=== PATIENT | female | born 1970 | race Caucasian/White ===

== ENCOUNTER 2022-11-21 15:09 | Emergency (ER) | payer OTHER ==
--- OUTSIDE RECORDS SUMMARY | 2022-11-21 15:17 | XMS REPORT | Continuity of Care Document ---
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 5-06 tablet by ity of ODT) 4 mg 00:00: mouth [place] disintegrat 00 every 8 Medic al ing tablet (eight) Branch hours as needed for Nausea and Vomiting (N/V) for up to 15 doses. famotidine 2021-0 Yes [id number] 20mg Take 1 [facility] (PEPCID) 20 5-06 tablet by ity of mg tablet 00:00: mouth 2 (two) Medical times Branch daily. dicyclomine 2021-0 Yes [id number] 10mg Take 1 [facility] 10 mg 5-06 capsule by ity of capsule 00:00: mouth 4 [place] (four) Medical times Branch daily as needed for Abdominal pain. ondansetron 2021-0 Yes [id number] 4mg Take 1 [facility] (ZOFRAN 5-06 tablet by ity of ODT) 4 mg 00:00: mouth [place] disintegrat 00 every 8 Medic al ing tablet (eight) Branch hours as needed for Nausea and Vomiting (N/V) for up to 15 doses. famotidine 2021-0 Yes [id number] 20mg Take 1 [facility] (PEPCID) 20 5-06 tablet by ity of mg tablet 00:00: mouth 2 (two) Medical times Branch daily. dicyclomine 2021-0 Yes [id number] 10mg Take 1 [facility] 10 mg 5-06 capsule by ity of capsule 00:00: mouth 4 (four) Medical times Branch daily as needed for Abdominal pain. ondansetron 2021-0 Yes [id number] 4mg Take 1 [facility] (ZOFRAN 5-06 tablet by ity of ODT) 4 mg 00:00: mouth [place] disintegrat 00 every 8 Medic al ing tablet (eight) Branch hours as needed for Nausea and Vomiting (N/V) for up to 15 doses. famotidine 2021-0 Yes [id number] 20mg Take 1 [facility] (PEPCID) 20 5-06 tablet by ity of mg tablet 00:00: mouth 2 (two) Medical times Branch daily. dicyclomine 2021-0 Yes [id number] 10mg Take 1 [facility] 10 mg 5-06 capsule by ity of capsule 00:00: mouth 4 [place] (four) Medical times Branch daily as needed for Abdominal pain. ondansetron 2021-0 Yes [id number] 4mg Take 1 [facility] (ZOFRAN 5-06 tablet by ity of ODT) 4 mg 00:00: mouth [place] disintegrat 00 every 8 Medic al ing tablet (eight) Branch hours as needed for Nausea and Vomiting (N/V) for up to 15 doses. famotidine 2021-0 Yes [id number] 20mg Take 1 [facility] (PEPCID) 20 5-06 tablet by ity of mg tablet 00:00: mouth 2 [place] (two) Medical times Branch daily. dicyclomine 2020-0 Yes [id number] 10mg Take 1 [facility] 10 mg 5-06 capsule by ity of capsule 00:00: mouth 4 [place] 00 (four) Medical times [place] daily as needed for Abdominal pain. ondansetron 2020-0 Yes [id number] 4mg Take 1 [facility] (ZOFRAN 5-06 tablet by ity of ODT) 4 mg 00:00: mouth [place] disintegrat 00 every 8 Medic al ing tablet (eight) Branch hours as needed for Nausea and Vomiting (N/V) for up to 15 doses. famotidine 0 Yes [id number] 20mg Take 1 [facility] (PEPCID) 20 5-06 tablet by ity of mg tablet 00:00: mouth 2 [place] (two) Medical times [place] daily. hydroCHLORO 2020-0 Yes 25mg Take 25 mg [facility] thiazide 25 4-27 by mouth ity of mg tablet 00:00: daily. [address] hydroCHLORO 0 Yes 25mg Take 25 mg [facility] thiazide 25 4-27 by mouth ity of mg tablet 00:00: daily. [address] hydroCHLORO 2020-0 Yes 25mg Take 25 mg [facility] thiazide 25 4-27 by mouth ity of mg tablet 00:00: daily. [address] hydroCHLORO 2020-0 Yes 25mg Take 25 mg [facility] thiazide 25 4-27 by mouth ity of mg tablet 00:00: daily. [address] hydroCHLORO 2020-0 Yes 25mg Take 25 mg [facility] thiazide 25 4-27 by mouth ity of mg tablet 00:00: daily. [address] hydroCHLORO 2020-0 Yes 25mg Take 25 mg [facility] thiazide 25 4-27 by mouth ity of mg tablet 00:00: daily. [address] nicotine 2020- Yes 1{patch 1 Patch, Un rony (NICODERM) 2-17 } Topical, ity o f 21 mg/24 hr 06:00: Administer [place] patch 1 00 over 24 Medical Patch Hours, Branch Q24H, First dose on [facility] 05/11/20 at 0000, Until Discontinu ed, Routine cefTRIAXone 2020-1 2020- No 1000mg 1,000 mg, [facility] (ROCEPHIN) 0-14 10-14 IV ity of 1,000 mg in 20:30: 20:07 [place], [place] NaCl 0.9% 00 :00 ONCE, 1 Medical (NS) 50 mL dose, Wed Bran ch MINI-BAG 03/08/20 at 1530, 50 mL
Reas on for Anti-Infec tive: Documented Infection< br>Documen jd Infection Site: Urine
D uration of Therapy: Other (see Comments) cefpodoxime 2020-1 2020- No [id number] 100mg Take 1 [facility] 100 mg 0-14 10-25 tablet by ity of tablet 00:00: 04:59 mouth 2 [place] 00 :00 (two) Medical times Branch daily for 10 days. benazepriL 2020-0 Yes 20mg QD Take 20 mg M [facility] (LOTENSIN) 3-[address] 20 MG 13:19: daily. [facility] tablet 57 l DULoxetine 2020-0 Yes 60mg QD Take 60 mg [facility] (CYMBALTA) 3-[address] 60 MG 13:19: daily. [facility]osp[facility] capsule 57 l hydroCHLORO 2020-0 Yes 25mg QD Take 25 mg [facility] thiazide 3-[address] (HYDRODIURI 13:19: daily. [facility]osp meri L) 25 MG 57 l tablet hydrOXYzine 2020-0 Yes 25mg QD Take 25 mg [facility] (ATARAX) 25 3-[address] [facility] tablet 13:19: daily. Hospit a 57 l DULoxetine 2020-0 Yes 60mg QD Take 60 mg M [facility] (CYMBALTA) 3-[address] 60 MG 13:19: daily. [facility]osp[facility] capsule 57 l hydroCHLORO 2020-0 Yes 25mg QD Take 25 mg [facility] thiazide 3-[address] (HYDRODIURI 13:19: daily. [facility]osp [facility] L) 25 MG 57 l tablet hydrOXYzine 2020-0 Yes 25mg QD Take 25 mg [facility] (ATARAX) 25 3-[address] MG tablet 13:19: daily. Hospit [facility] 57 l benazepriL 2020-0 Yes 20mg QD Take 20 mg M [facility] (LOTENSIN) 3-[address] 20 MG 13:19: daily. [facility]osp[facility] tablet 57 l DULoxetine 2020-0 Yes 60mg QD Take 60 mg M [facility] (CYMBALTA) 3-[address] 60 MG 13:19: daily. [facility]osp[facility] capsule 57 l hydroCHLORO 2020-0 Yes 25mg QD Take 25 mg [facility] thiazide 3-[address] (HYDRODIURI 13:19: daily. [facility]osp [facility] L) 25 MG 57 l tablet hydrOXYzine 2020-0 Yes 25mg QD Take 25 mg [facility] (ATARAX) 25 3-[address] MG tablet 13:19: daily. Hospit a 57 l benazepriL 2020-0 Yes 20mg QD Take 20 mg M [facility]i (LOTENSIN) 3-[address] 20 MG 13:19: daily. [facility]ospita tablet 57 l DULoxetine 2020-0 Yes 60mg QD Take 60 mg M [facility] (CYMBALTA) 3-[address] 60 MG 13:19: daily. [facility]osp[facility] capsule 57 l hydroCHLORO 2020-0 Yes 25mg QD Take 25 mg [facility] thiazide 3-[address] (HYDRODIURI 13:19: daily. Hosp meri L) 25 MG 57 l tablet hydroCHLORO 2020-0 Yes 25mg QD Take 25 mg [facility] thiazide 3-[address] (HYDRODIURI 13:19: daily. [facility]osp [facility] L) 25 MG 57 l tablet hydrOXYzine 2020-0 Yes 25mg QD Take 25 mg [facility] (ATARAX) 25 3-[address] MG tablet 13:19: daily. Hospit [facility] 57 l benazepriL 2020-0 Yes 20mg QD Take 20 mg M [facility]i (LOTENSIN) 3-[address] 20 MG 13:19: daily. Hospita tablet 57 l DULoxetine 2020-0 Yes 60mg QD Take 60 mg M [facility] (CYMBALTA) 3-[address] 60 MG 13:19: daily. [facility]ospita capsule 57 l hydrOXYzine 2020-0 Yes 25mg QD Take 25 mg [facility] (ATARAX) 25 3-[address] MG tablet 13:19: daily. Hospit a 57 l benazepriL 2020-0 Yes 20mg QD Take 20 mg M ethodi (LOTENSIN) 3-[address] 20 MG 13:19: daily. Hospita tablet 57 l LORazepam 2020-0 2020- No 1mg 1 mg, Slow U nivers (ATIVAN) 3-05 03-05 IV Push, ity of injection 1 06:00: 04:59 ONCE, 1 [place] mg 00 :00 dose, [facility] 07/29/19 at Branch 0000, STAT maalox:diph 2018- No 15mL 15 mL, Uni vers enhydrAMINE 01-31 Oral, ity of :lidocaine2 22:00: 20:58 ONCE, 1 [place] %viscous 00 :00 dose, [facility] 1:1:1: 01/31/19 at [place] suspension 1700, (COMPOUNDED Routine ) famotidine 2018- No 20mg 20 mg, Univ ers (PEPCID 01-31 Slow IV ity of (PF)) 21:45: 20:54 Push, [place] injection 00 :00 ONCE, 1 Medical 20 mg dose, [facility] 01/31/19 at 1645, [place] NaCl 0.9% 2019- No 1000mL at 999 Uni vers (NS) bolus 01-31 mL/hr, ity of infusion 20:45: 22:00 1,000 mL, [place] as 1,000 mL 00 :00 IV Medical Infusion, [place] ONCE, 1 dose, [facility] 01/31/19 at 1545, [place] famotidine 2018-0 Yes [id number] 20mg Take 1 U nivers (PEPCID) 20 9-08 tablet by ity of mg tablet 00:00: mouth 2 [place] [address] (two) Medical times [place] daily. pantoprazol 2019-0 Yes [id number] 40mg Take 1 [facility] e 9-08 tablet by ity of (PROTONIX) 00:00: mouth [place] 40 mg EC 00 daily. Medical tablet Branch famotidine 2019-0 Yes [id number] 20mg Take 1 U n[facility] (PEPCID) 20 9-08 tablet by ity of mg tablet 00:00: mouth 2 [place] 00 (two) Medical times [place] daily. pantoprazol 2019-0 Yes [id number] 40mg Take 1 [facility] e 9-08 tablet by ity of (PROTONIX) 00:00: mouth [place] 40 mg EC 00 daily. Medical tablet Branch famotidine 2019-0 Yes [id number] 20mg Take 1 U n[facility] (PEPCID) 20 9-08 tablet by ity of mg tablet 00:00: mouth 2 [place] 00 (two) Medical times [place] daily. pantoprazol 2019-0 Yes [id number] 40mg Take 1 [facility] e 9-08 tablet by ity of (PROTONIX) 00:00: mouth [place] 40 mg EC 00 daily. Medical tablet Branch famotidine 2018-0 Yes [id number] 20mg Take 1 U n[facility] (PEPCID) 20 9-08 tablet by ity of mg tablet 00:00: mouth 2 [place] (two) Medical times Branch daily. pantoprazol 2019-0 Yes [id number] 40mg Take 1 [facility] e 9-08 tablet by ity of (PROTONIX) 00:00: mouth [place] 40 mg EC 00 daily. Medical tablet Branch famotidine 0 Yes [id number] 20mg Take 1 U n[facility] (PEPCID) 20 9-08 tablet by ity of mg tablet 00:00: mouth 2 (two) Medical times Branch daily. pantoprazol 2018-0 Yes [id number] 40mg Take 1 [facility] e 9-08 tablet by ity of (PROTONIX) 00:00: mouth [place] 40 mg EC 00 daily. Medical tablet Branch famotidine Yes [id number] 20mg Take 1 [facility] n[facility] (PEPCID) 20 9-08 tablet by ity of mg tablet 00:00: mouth 2 (two) Medical times Branch daily. pantoprazol 2018-0 Yes [id number] 40mg Take 1 [facility] e 9-08 tablet by ity of (PROTONIX) 00:00: mouth [place] 40 mg EC 00 daily. Medical tablet Branch famotidine 0 Yes [id number] 20mg Take 1 U n[facility] (PEPCID) 20 9-08 tablet by ity of mg tablet 00:00: mouth 2 (two) Medical times Branch daily. pantoprazol 2019-0 Yes [id number] 40mg Take 1 [facility] e 9-08 tablet by ity of (PROTONIX) 00:00: mouth [place] 40 mg EC 00 daily. Medical tablet Branch famotidine 2018-0 Yes [id number] 20mg Take 1 U nivers (PEPCID) 20 9-08 tablet by ity of mg tablet 00:00: mouth 2 [place] (two) Medical times Branch daily. pantoprazol 2019-0 Yes [id number] 40mg Take 1 [facility] e 9-08 tablet by ity of (PROTONIX) 00:00: mouth [place] 40 mg EC 00 daily. Medical tablet Branch famotidine 2018-0 Yes [id number] 20mg Take 1 U nivers (PEPCID) 20 9-08 tablet by ity of mg tablet 00:00: mouth 2 (two) Medical times Branch daily. pantoprazol 2019-0 Yes [id number] 40mg Take 1 [facility] e 9-08 tablet by ity of (PROTONIX) 00:00: mouth [place] 40 mg EC 00 daily. Medical tablet Branch famotidine 2018- Yes [id number] 20mg Take 1 U nivers (PEPCID) 20 9-08 tablet by ity of mg tablet 00:00: mouth 2 (two) Medical times Branch daily. pantoprazol 2019- Yes [id number] 40mg Take 1 [facility] e 9-08 tablet by ity of (PROTONIX) 00:00: mouth [place] 40 mg EC 00 daily. Medical tablet Branch famotidine Yes [id number] 20mg Take 1 U nivers (PEPCID) 20 9-08 tablet by ity of mg tablet 00:00: mouth (two) Medical times Branch daily. pantoprazol 2018- Yes [id number] 40mg Take 1 [facility] e 9-08 tablet by ity of (PROTONIX) 00:00: mouth [place] 40 mg EC 00 daily. Medical tablet Branch famotidine Yes [id number] 20mg Take 1 U nivers (PEPCID) 20 9-08 tablet by ity of mg tablet 00:00: mouth (two) Medical times Branch daily. pantoprazol 2018-0 Yes [id number] 40mg Take 1 [facility] e 9-08 tablet by ity of (PROTONIX) 00:00: mouth [place] 40 mg EC 00 daily. Medical tablet Branch famotidine Yes [id number] 20mg Take 1 U nivers (PEPCID) 20 9-08 tablet by ity of mg tablet 00:00: mouth 2 (two) Medical times Branch daily. pantoprazol 2019-0 Yes [id number] 40mg Take 1 [facility] e 9-08 tablet by ity of (PROTONIX) 00:00: mouth [place] 40 mg EC 00 daily. Medical tablet Branch famotidine 2018-0 Yes [id number] 20mg Take 1 U nivers (PEPCID) 20 9-08 tablet by ity of mg tablet 00:00: mouth 2 (two) Medical times Branch daily. pantoprazol 2019- Yes [id number] 40mg Take 1 [facility] e 9-08 tablet by ity of (PROTONIX) 00:00: mouth [place] 40 mg EC 00 daily. Medical tablet Branch pantoprazol 2019-0 2019- No [id number] 40mg Take 1 [facility] e 9-08 09-08 tablet by ity of (PROTONIX) 00:00: 00:00 mouth [place] 40 mg EC 00 :00 daily. Medical tablet Branch ibuprofen 2017-0 Yes 800mg Take 1 Un[facility] rs 800 mg 3-24 tablet by ity of tablet 00:00: mouth [place] 00 every 8 Medical (eight) Branch hours. ibuprofen 2017-0 Yes 800mg Take 1 Unive rs 800 mg 3-24 tablet by ity of tablet 00:00: mouth [place] 00 every 8 Medical (eight) Branch hours. ibuprofen 2017-0 Yes 800mg Take 1 Unive rs 800 mg 3-24 tablet by ity of tablet 00:00: mouth [place] 00 every 8 Medical (eight) Branch hours. ibuprofen 2017-0 Yes 800mg Take 1 Unive rs 800 mg 3-24 tablet by ity of tablet 00:00: mouth [place] 00 every 8 Medical (eight) Branch hours. ibuprofen 2017-0 Yes 800mg Take 1 Unive rs 800 mg 3-24 tablet by ity of tablet 00:00: mouth [place] 00 every 8 Medical (eight) Branch hours. ibuprofen 2017-0 Yes 800mg Take 1 Unive rs 800 mg 3-24 tablet by ity of tablet 00:00: mouth [place] 00 every 8 Medical (eight) Branch hours. ibuprofen 2017-0 Yes 800mg Take 1 Unive rs 800 mg 3-24 tablet by ity of tablet 00:00: mouth [place] 00 every 8 Medical (eight) Branch hours. ibuprofen 2017-0 Yes 800mg Take 1 Unive rs 800 mg 3-24 tablet by ity of tablet 00:00: mouth [place] 00 every 8 Medical (eight) Branch hours. ibuprofen 2017-0 Yes 800mg Take 1 Unive rs 800 mg 3-24 tablet by ity of tablet 00:00: mouth [place] 00 every 8 Medical (eight) Branch hours. ibuprofen 2017-0 Yes 800mg Take 1 Unive rs 800 mg 3-24 tablet by ity of tablet 00:00: mouth [place] 00 every 8 Medical (eight) Branch hours. ibuprofen 2017-0 Yes 800mg Take 1 Unive rs 800 mg 3-24 tablet by ity of tablet 00:00: mouth [place] 00 every 8 Medical (eight) Branch hours. ibuprofen 2017-0 Yes 800mg Take 1 Unive rs 800 mg 3-24 tablet by ity of tablet 00:00: mouth [place] 00 every 8 Medical (eight) Branch hours. ibuprofen 2017-0 Yes 800mg Take 1 Unive rs 800 mg 3-24 tablet by ity of tablet 00:00: mouth [place] 00 every 8 Medical (eight) Branch hours. ibuprofen 2017-0 Yes 800mg Take 1 Unive rs 800 mg 3-24 tablet by ity of tablet 00:00: mouth [place] 00 every 8 Medical (eight) Branch hours. albuterol 2017-0 Yes Psychosis, 2{puff} Inhale 2 [facility] (VENTOLIN 1-11 unspecified Puffs by Health HFA,PROVENT 00:00: psychosis mouth [place] 00 type every 6 HFA,PROAIR hours as HFA) 90 needed for mcg/actuati Shortness on inhaler of Breath. loratadine 2017- Yes Psychosis, 10mg Take 1 [facility] (CLARITIN) 1-11 unspecified tablet by Health 10 mg 00:00: psychosis mouth tablet 00 type daily as needed for Allergies. nicotine 2017-0 Yes Psychosis, 2mg Place 1 [facility] polacrilex 1-11 unspecified Each He alth (NICORETTE) 00:00: psychosis inside 2 mg Gum 00 type cheek as needed (nicotine craving). risperiDONE 2017-0 Yes Psychosis, 2mg Q.5D Take 1 [facility] (RISPERDAL) 1-11 unspecified tablet by Health 2 mg tablet 00:00: psychosis mouth 2 00 type times daily. albuterol 2017-0 Yes Psychosis, 2{puff} Inhale 2 [facility] (VENTOLIN 1-11 unspecified Puffs by Health HFA,PROVENT 00:00: psychosis mouth [place] 00 type every 6 HFA,PROAIR hours as HFA) 90 needed for mcg/actuati Shortness on inhaler of Breath. loratadine 2017-0 Yes Psychosis, 10mg Take 1 [facility] (CLARITIN) 1-11 unspecified tablet by Health 10 mg 00:00: psychosis mouth tablet 00 type daily as needed for Allergies. nicotine 2017-0 Yes Psychosis, 2mg Place 1 [facility] polacrilex 1-11 unspecified Each He alth (NICORETTE) 00:00: psychosis inside 2 mg Gum 00 type cheek as needed (nicotine craving). risperiDONE 2017- Yes Psychosis, 2mg Q.5D Take 1 [facility] (RISPERDAL) 1-11 unspecified tablet by Health 2 mg tablet 00:00: psychosis mouth 2 00 type times daily. albuterol 2017- Yes Psychosis, 2{puff} Inhale 2 [facility] (VENTOLIN 1-11 unspecified Puffs by Health HFA,PROVENT 00:00: psychosis mouth [place] 00 type every 6 HFA,PROAIR hours as HFA) 90 needed for mcg/actuati Shortness on inhaler of Breath. loratadine 2017- Yes Psychosis, 10mg Take 1 [facility] (CLARITIN) 1-11 unspecified tablet by Health 10 mg 00:00: psychosis mouth tablet 00 type daily as needed for Allergies. nicotine 2017- Yes Psychosis, 2mg Place 1 [facility] polacrilex 1-11 unspecified Each He alth (NICORETTE) 00:00: psychosis inside 2 mg Gum 00 type cheek as needed (nicotine craving). risperiDONE 2017- Yes Psychosis, 2mg Q.5D Take 1 [facility] (RISPERDAL) 1-11 unspecified tablet by Health 2 mg tablet 00:00: psychosis mouth 2 00 type times daily. albuterol 2017 Yes Psychosis, 2{puff} Inhale 2 [facility] (VENTOLIN 1-11 unspecified Puffs by Health HFA,PROVENT 00:00: psychosis mouth [place] 00 type every 6 HFA,PROAIR hours as HFA) 90 needed for mcg/actuati Shortness on inhaler of Breath. loratadine 2017- Yes Psychosis, 10mg Take 1 [facility] (CLARITIN) 1-11 unspecified tablet by Health 10 mg 00:00: psychosis mouth tablet 00 type daily as needed for Allergies. nicotine 2017- Yes Psychosis, 2mg Place 1 [facility] polacrilex 1-11 unspecified Each He alth (NICORETTE) 00:00: psychosis inside 2 mg Gum 00 type cheek as needed (nicotine craving). risperiDONE 2017-0 Yes Psychosis, 2mg Q.5D Take 1 [facility] (RISPERDAL) 1-11 unspecified tablet by Health 2 mg tablet 00:00: psychosis mouth 2 00 type times daily. albuterol 2017- Yes Psychosis, 2{puff} Inhale 2 [facility] (VENTOLIN 1-11 unspecified Puffs by Health HFA,PROVENT 00:00: psychosis mouth [place] 00 type every 6 HFA,PROAIR hours as HFA) 90 needed for mcg/actuati Shortness on inhaler of Breath. loratadine 2017-0 Yes Psychosis, 10mg Take 1 [facility] (CLARITIN) 1-11 unspecified tablet by Health 10 mg 00:00: psychosis mouth tablet 00 type daily as needed for Allergies. nicotine 2017-0 Yes Psychosis, 2mg Place 1 [facility] polacrilex 1-11 unspecified Each He alth (NICORETTE) 00:00: psychosis inside 2 mg Gum 00 type cheek as needed (nicotine craving). risperiDONE 2017-0 Yes Psychosis, 2mg Q.5D Take 1 [facility] (RISPERDAL) 1-11 unspecified tablet by Health 2 mg tablet 00:00: psychosis mouth 2 00 type times daily. ondansetron 2016-0 Yes 4mg Take 1 Tab [facility] (ZOFRAN, 4-16 by mouth ity of HYDROCHLORI 00:00: every 8 [place],) 4 mg 00 (eight) Medical tablet hours as Branch needed for Nausea and Vomiting (N/V). ketorolac 2016-0 Yes 10mg Take 1 Tab Un rony (TORADOL) 4-16 by mouth ity of 10 mg 00:00: every 6 [place] tablet 00 (six) Medical hours as Branch needed for Pain (scale 7-10). ondansetron 2016-0 Yes 4mg Take 1 Tab [facility] (ZOFRAN, 4-16 by mouth ity of HYDROCHLORI 00:00: every 8 [place],) 4 mg 00 (eight) Medical tablet hours as Branch needed for Nausea and Vomiting (N/V). ketorolac 2016-0 Yes 10mg Take 1 Tab Un rony (TORADOL) 4-16 by mouth ity of 10 mg 00:00: every 6 [place] tablet 00 (six) Medical hours as Branch needed for Pain (scale 7-10). ondansetron 2016-0 Yes 4mg Take 1 Tab [facility] (ZOFRAN, 4-16 by mouth ity of HYDROCHLORI 00:00: every 8 [place],) 4 mg 00 (eight) Medical tablet hours as Branch needed for Nausea and Vomiting (N/V). ketorolac 2016-0 Yes 10mg Take 1 Tab Un rony (TORADOL) 4-16 by mouth ity of 10 mg 00:00: every 6 [place] tablet 00 (six) Medical hours as Branch needed for Pain (scale 7-10). ondansetron 2016-0 Yes 4mg Take 1 Tab [facility] (ZOFRAN, 4-16 by mouth ity of HYDROCHLORI 00:00: every 8 [place],) 4 mg 00 (eight) Medical tablet hours as Branch needed for Nausea and Vomiting (N/V). ketorolac 2016-0 Yes 10mg Take 1 Tab Un rony (TORADOL) 4-16 by mouth ity of 10 mg 00:00: every 6 [place] tablet 00 (six) Medical hours as Branch needed for Pain (scale 7-10). ondansetron 2016-0 Yes 4mg Take 1 Tab [facility] (ZOFRAN, 4-16 by mouth ity of HYDROCHLORI 00:00: every 8 [place],) 4 mg 00 (eight) Medical tablet hours as Branch needed for Nausea and Vomiting (N/V). ketorolac 2016-0 Yes 10mg Take 1 Tab Un rony (TORADOL) 4-16 by mouth ity of 10 mg 00:00: every 6 [place] tablet 00 (six) Medical hours as Branch needed for Pain (scale 7-10). ondansetron 2016-0 Yes 4mg Take 1 Tab [facility] (ZOFRAN, 4-16 by mouth ity of HYDROCHLORI 00:00: every 8 [place],) 4 mg 00 (eight) Medical tablet hours as Branch needed for Nausea and Vomiting (N/V). ketorolac 2016-0 Yes 10mg Take 1 Tab Un rony (TORADOL) 4-16 by mouth ity of 10 mg 00:00: every 6 [place] tablet 00 (six) Medical hours as Branch needed for Pain (scale 7-10). ondansetron 2016-0 Yes 4mg Take 1 Tab [facility] (ZOFRAN, 4-16 by mouth ity of HYDROCHLORI 00:00: every 8 [place],) 4 mg 00 (eight) Medical tablet hours as Branch needed for Nausea and Vomiting (N/V). ketorolac 2016-0 Yes 10mg Take 1 Tab Un rony (TORADOL) 4-16 by mouth ity of 10 mg 00:00: every 6 [place] tablet 00 (six) Medical hours as Branch needed for Pain (scale 7-10). ondansetron 2016-0 Yes 4mg Take 1 Tab [facility] (ZOFRAN, 4-16 by mouth ity of HYDROCHLORI 00:00: every 8 [place],) 4 mg 00 (eight) Medical tablet hours as Branch needed for Nausea and Vomiting (N/V). ketorolac 2016-0 Yes 10mg Take 1 Tab Un rony (TORADOL) 4-16 by mouth ity of 10 mg 00:00: every 6 [place] tablet 00 (six) Medical hours as Branch needed for Pain (scale 7-10). ondansetron 2016-0 Yes 4mg Take 1 Tab [facility] (ZOFRAN, 4-16 by mouth ity of HYDROCHLORI 00:00: every 8 [place],) 4 mg 00 (eight) Medical tablet hours as Branch needed for Nausea and Vomiting (N/V). ketorolac 2016-0 Yes 10mg Take 1 Tab Un rony (TORADOL) 4-16 by mouth ity of 10 mg 00:00: every 6 [place] tablet 00 (six) Medical hours as Branch needed for Pain (scale 7-10). ondansetron 2016-0 Yes 4mg Take 1 Tab [facility] (ZOFRAN, 4-16 by mouth ity of HYDROCHLORI 00:00: every 8 [place],) 4 mg 00 (eight) Medical tablet hours as Branch needed for Nausea and Vomiting (N/V). ketorolac 2016-0 Yes 10mg Take 1 Tab Un rony (TORADOL) 4-16 by mouth ity of 10 mg 00:00: every 6 [place] tablet 00 (six) Medical hours as Branch needed for Pain (scale 7-10). ketorolac 2016-0 Yes 10mg Take 1 Tab Un rony (TORADOL) 4-16 by mouth ity of 10 mg 00:00: every 6 [place] tablet 00 (six) Medical hours as Branch needed for Pain (scale 7-10). ondansetron 2016-0 Yes 4mg Take 1 Tab [facility] (ZOFRAN, 4-16 by mouth ity of HYDROCHLORI 00:00: every 8 [place],) 4 mg 00 (eight) Medical tablet hours as Branch needed for Nausea and Vomiting (N/V). ondansetron 2016-0 Yes 4mg Take 1 Tab [facility] (ZOFRAN, 4-16 by mouth ity of HYDROCHLORI 00:00: every 8 [place],) 4 mg 00 (eight) Medical tablet hours as Branch needed for Nausea and Vomiting (N/V). ketorolac 2016-0 Yes 10mg Take 1 Tab Un rony (TORADOL) 4-16 by mouth ity of 10 mg 00:00: every 6 [place] tablet 00 (six) Medical hours as Branch needed for Pain (scale 7-10). ondansetron 2016-0 Yes 4mg Take 1 Tab [facility] (ZOFRAN, 4-16 by mouth ity of HYDROCHLORI 00:00: every 8 [place],) 4 mg 00 (eight) Medical tablet hours as Branch needed for Nausea and Vomiting (N/V). ketorolac 2016-0 Yes 10mg Take 1 Tab Un rony (TORADOL) 4-16 by mouth ity of 10 mg 00:00: every 6 [place] tablet 00 (six) Medical hours as Branch needed for Pain (scale 7-10). ondansetron 2016-0 Yes 4mg Take 1 Tab [facility] (ZOFRAN, 4-16 by mouth ity of HYDROCHLORI 00:00: every 8 [place],) 4 mg 00 (eight) Medical tablet hours as Branch needed for Nausea and Vomiting (N/V). ketorolac 2016-0 Yes 10mg Take 1 Tab Un rony (TORADOL) 4-16 by mouth ity of 10 mg 00:00: every 6 [place] tablet 00 (six) Medical hours as Branch needed for Pain (scale 7-10). famotidine 2012- Yes Dyspepsia 40mg Q.5D Take 1 [facility] (PEPCID) 40 4-10 tablet by [facility] mg tablet 00:00: mouth 2 00 times daily. famotidine 2013-0 Yes Dyspepsia 40mg Q.5D Take 1 [facility] (PEPCID) 40 4-10 tablet by [facility] mg tablet 00:00: mouth 2 00 times daily. famotidine 2013-0 Yes Dyspepsia 40mg Q.5D Take 1 [facility] (PEPCID) 40 4-10 tablet by Hea l[facility] mg tablet 00:00: mouth 2 00 times daily. famotidine 2013-0 Yes Dyspepsia 40mg Q.5D Take 1 [facility] (PEPCID) 40 4-10 tablet by [facility]a [facility] mg tablet 00:00: mouth 2 00 times daily. famotidine Yes Dyspepsia 40mg Q.5D Take 1 [facility] (PEPCID) 40 4-10 tablet by Carolee lth mg tablet 00:00: mouth 2 00 times daily. Immunizations Ordered Immunization Filled Immunization Date Status Commen ts Source Name Name Pfizer COVID-19 Pfizer COVID-19 2021-01-09 Completed Vaccine Vaccine 00:00:00 Pfizer COVID-19 Pfizer COVID-19 2020-12-19 Completed Vaccine Vaccine 00:00:00 Influenza Vaccine 2012-06-03 Completed [facility] 00:00:00 Influenza Vaccine 2012-06-03 Completed [facility] 00:00:00 Influenza Vaccine 2012-06-03 Completed [facility] 00:00:00 Influenza Vaccine 2012-06-03 Completed [facility] 00:00:00 Influenza Vaccine 2012-06-03 Completed [facility] 00:00:00 Influenza Vaccine 2010-02-26 Completed [facility] 00:00:00 Influenza Vaccine 2010-02-26 Completed [facility] 00:00:00 Influenza Vaccine 2010-02-26 Completed [facility] 00:00:00 Influenza Vaccine 2010-02-26 Completed [facility] 00:00:00 Influenza Vaccine 2010-02-26 Completed [facility] 00:00:00 Vital Signs Vital Name Observation Time Observation Value Comments Source Systolic blood 2022-10-16 19:10:00 126 mm[Hg] Gena Almeida - pressure External Diastolic blood 2022-10-16 19:10:00 66 mm[Hg] Smiley tolentino Seybold - pressure External Heart rate 2022-10-16 19:10:00 89 /min Gena cerna - External Body temperature 2022-10-16 19:10:00 36.11 Kristen Chantel trinh Seybold - External Respiratory rate 2022-10-16 19:10:00 16 /min Chantel Almeida - External Body height 2022-10-16 19:10:00 149.9 cm Gena cerna - External Body weight 2022-10-16 19:10:00 76.658 kg Gena cerna - External BMI 2022-10-16 19:10:00 34.13 kg/m2 Gena cerna - External Oxygen saturation in 2022-10-16 19:10:00 96 /min Gena Seybold - Arterial blood by External Pulse oximetry Systolic blood 2022-10-08 19:18:00 121 mm[Hg] Gena Seybold - pressure External Diastolic blood 2022-10-08 19:18:00 77 mm[Hg] Smiley tolentino Seybold - pressure External Heart rate 2022-10-08 19:18:00 101 /min Gena Díaz eybold - External Respiratory rate 2022-10-08 19:18:00 16 /min Chantel Solimanold - External Body height 2022-10-08 19:18:00 124.5 cm Gena Díaz eybold - External Body weight 2022-10-08 19:18:00 72.576 kg Gena Díaz eybold - External BMI 2022-10-08 19:18:00 46.85 kg/m2 Gena trinhbold - External Systolic blood 2020-10-05 13:37:00 100 mm[Hg] Univer sity of pressure [facility] Diastolic blood 2020-10-05 13:37:00 65 mm[Hg] Unive rsity of pressure [facility] Heart rate 2020-10-05 13:37:00 76 /min Universi ty of [facility] Body temperature 2020-10-05 13:37:00 36.5 Kristen Univ ersity of [facility] Body height 2020-10-05 13:37:00 149.9 cm Universi ty of [facility] Body weight 2020-10-05 13:37:00 73.029 kg Universi ty [facility] BMI 2020-10-05 13:37:00 32.52 kg/m2 Universi ty of [facility] Systolic blood 2020-10-05 13:37:00 100 mm[Hg] Univer sity of pressure [facility] Diastolic blood 2020-10-05 13:37:00 65 mm[Hg] Unive rsity of pressure [facility] Heart rate 2020-10-05 13:37:00 76 /min Universi ty [facility] Body temperature 2020-10-05 13:37:00 36.5 Kristen Univ ersity of [facility] Body height 2020-10-05 13:37:00 149.9 cm Universi ty of [facility] Body weight 2020-10-05 13:37:00 73.029 kg [facility] BMI 2020-10-05 13:37:00 32.52 kg/m2 [facility] Systolic blood 2020-10-05 07:00:00 104 mm[Hg] Univer sity of [facility] Diastolic blood 2020-10-05 07:00:00 70 mm[Hg] Unive rsity of pressure [facility] Heart rate 2020-10-05 07:00:00 78 /min [facility] Respiratory rate 2020-10-05 07:00:00 18 /min [facility] Oxygen saturation in 2020-10-05 07:00:00 95 /min [facility] Arterial blood by [place] [facility] Pulse oximetry Branch Body temperature 2020-10-05 03:59:00 36.78 Kristen [facility] Body weight 2020-10-05 03:59:00 70.308 kg [facility] BMI 2020-10-05 03:59:00 30.27 kg/m2 [facility] Systolic blood 2020-09-29 03:00:00 126 mm[Hg] Univer [facility]ity of [facility] Diastolic blood 2020-09-29 03:00:00 71 mm[Hg] Unive rsity of pressure [facility] Heart rate 2020-09-29 03:00:00 79 /min [facility] Respiratory rate 2020-09-29 03:00:00 16 /min [facility] Oxygen saturation in 2020-09-29 03:00:00 98 /min [facility] Arterial blood by [place] [facility] Pulse oximetry [facility] Body temperature 2020-09-28 21:47:00 36.56 Kristen [facility] Body weight 2020-09-28 21:47:00 77.097 kg [facility] BMI 2020-09-28 21:47:00 33.19 kg/m2 [facility] Systolic blood 2020-05-11 13:34:00 130 mm[Hg] Univer [facility]ity of [facility] Diastolic blood 2020-05-11 13:34:00 64 mm[Hg] Unive rsity of [facility] Heart rate 2020-05-11 13:34:00 75 /min [facility] Respiratory rate 2020-05-11 13:34:00 18 /min [facility] Oxygen saturation in 2020-05-11 13:34:00 96 /min [facility] Arterial blood by [facility] Pulse oximetry Branch Body temperature 2020-05-11 09:07:00 36.89 Kristen [facility] Body weight 2020-05-11 00:31:00 77.097 kg [facility] BMI 2020-05-11 00:31:00 33.19 kg/m2 [facility] Systolic blood 2020-03-08 22:15:00 132 mm[Hg] Univer [facility]ity of [facility] Diastolic blood 2020-03-08 22:15:00 78 mm[Hg] Unive rsity of [facility] Heart rate 2020-03-08 22:15:00 78 /min [facility] Body temperature 2020-03-08 22:15:00 36.33 Kristen [facility] Respiratory rate 2020-03-08 22:15:00 16 /min [facility] Oxygen saturation in 2020-03-08 22:15:00 97 /min [facility] Arterial blood by [facility] Pulse oximetry Branch Body weight 2020-03-08 11:01:43 63.5 kg [facility] BMI 2020-03-08 11:01:43 27.34 kg/m2 [facility] Systolic blood 2019-07-29 14:17:00 128 mm[Hg] Univer [facility]ity [facility] Diastolic blood 2019-07-29 14:17:00 70 mm[Hg] Unive rsity of [facility] Heart rate 2019-07-29 14:17:00 78 /min [facility] Body temperature 2019-07-29 14:17:00 36.89 Kristen [facility] Respiratory rate 2019-07-29 14:17:00 20 /min [facility] Oxygen saturation in 2019-07-29 14:17:00 98 /min [facility] Arterial blood by [facility] Pulse oximetry Branch Body weight 2019-07-29 01:08:00 63.504 kg [facility] BMI 2019-07-29 01:08:00 27.34 kg/m2 Universi [facility] Systolic blood 2019-01-31 22:15:00 117 mm[Hg] Univer sity of pressure [facility] Diastolic blood 2019-01-31 22:15:00 62 mm[Hg] Unive rsity of pressure [facility] Heart rate 2019-01-31 22:15:00 79 /min [facility] Body temperature 2019-01-31 22:15:00 36.5 Kristen [facility] Respiratory rate 2019-01-31 22:15:00 16 /min [facility] Oxygen saturation in 2019-01-31 22:15:00 99 /min [facility] blood by [facility] Pulse oximetry [place] Body weight 2019-01-31 20:04:00 61.236 kg [facility] BMI 2019-01-31 20:04:00 26.37 kg/m2 [facility] Intravascular 2022-01-22 14:53:00 131 mm[Hg] [facility] Systolic [facility] Intravascular 2022-01-22 14:53:00 86 mm[Hg] [facility] Diastolic [facility] Heart Rate 2022-01-22 14:53:00 81 /min [facility] Body height 2022-01-22 14:40:00 149.86 cm [facility] Body Weight 2022-01-22 14:40:00 74.298 kg [facility] Intravascular 2022-01-22 14:40:00 154 mm[Hg] [facility] Sy[facility] Intrav[facility] 2022-01-22 14:40:00 87 mm[Hg] [facility] Di[facility] Heart Rate 2022-01-22 14:40:00 82 /min [facility] Body Temperature 2022-01-22 14:40:00 36.50 Kristen [facility] Respiratory rate 2022-01-22 14:40:00 17 /min [facility] Body mass index 2022-01-22 14:40:00 33.08 kg/m2 [facility] Health and Wellness SaO2 % BldA PulseOx 2022-01-22 14:40:00 97 /min [facility] Procedures Procedure Date / Time Performing Clinician Source Performed URINE CULTURE, ROUTINE 2022-10-16 21:11:00 Flores Ramirez Elle - External Established Patient 2022-01-22 00:00:00 [facility] Health and Office Visit-Level Four Wellness New Patient Office 2022-01-22 00:00:00 [facility] H ealth and Visit-Level Four Wellness Hemoglobin A1C 2022-01-22 00:00:00 [facility] Complete Blood Count 2022-01-22 00:00:00 [facility] Health and (CBC) Wellness Lipid Panel 2022-01-22 00:00:00 [facility] Comprehensive Metabolic 2022-01-22 00:00:00 Coaarjun anna Health and Panel Wellness Nominal Fee 2022-01-22 00:00:00 [facility] th and Wellness Periodontal Scaling And 2022-01-22 00:00:00 Coaarjun anna Health and Root Planing-Four Or Mor Radha s Nominal Fee 2021-12-20 00:00:00 [facility] Intraoral Complete 2021-12-20 00:00:00 [facility] H ealth and Series (Including Wellness [place]) Comprehensive Oral 2021-12-20 00:00:00 [facility] ealth and Evaluation New Or Wellness Established Caries risk assessment, 2021-12-20 00:00:00 Coaarjun anna Health and moderate risk Wellness Nominal Fee 2021-11-29 00:00:00 [facility] Heal th and Wellness Intraoral Periapical 2021-11-29 00:00:00 [facility] Health and First Film Wellness Panoramic Film 2021-11-29 00:00:00 [facility] Heal th and Wellness Intraoral Periapical 2021-11-29 00:00:00 [facility] and Each Additional Film Wellness Limited Oral Evaluation 2021-11-29 00:00:00 Coaarjun anna Health and Problem Focused Wellness Established Patient 2020-10-31 00:00:00 [facility] Health and Office Visit-Level Three Radha KENDALL'S CONSENT FOR 2020-10-14 13:16:01 Doctor Unassigned, No [facility] FREE TREATMENT FORM Name Medical [facility] ASSIGNMENT OF BENEFITS 2020-10-05 13:20:35 Doctor Unassigned, No [facility] Name Medical Branch COMP. METABOLIC PANEL 2020-10-05 06:42:00 [facility] ([id number]) Medical Branch US ABDOMEN LIMITED 2020-10-05 06:33:57 Anatoly Myers [facility] [place] LIPASE 2020-10-05 05:53:00 Pascual Correa [facility] CBC WITH DIFF 2020-10-05 05:53:00 Pascual Correa [facility] URINALYSIS 2020-10-05 05:53:00 Pascual Correa [facility] CONSENT/REFUSAL FOR 2020-10-05 03:58:54 [facility]assigned, No [facility] Name [facility] CT ABDOMEN PELVIS W 2020-09-29 02:39:32 Kojo Long [facility] CONTRAST [facility] URINALYSIS 2020-09-29 00:28:00 [facility] 2020-09-28 22:56:00 Ean Omerian [facility] HEPATIC FUNCTION PANEL 2020-09-28 22:56:00 Alfonso Omer [facility] ([id number]) (ALB,T.PRO,BILI [facility] T,BU/BC,ALT,AST,ALK PHOS) BASIC METABOLIC PANEL 2020-09-28 22:56:00 Alfonso Omer [facility] (NA, K, CL, CO2, Medical [place] GLUCOSE, BUN, CREATININE, CA) CBC WITH DIFF 2020-09-28 22:56:00 Alfonso Omer [facility] LACTIC ACID WHOLE BLOOD 2020-09-28 22:56:00 Alfonso Omer [facility] CONSENT/REFUSAL FOR 2020-09-28 21:45:48 Doctor Unassigned, No [facility] Name [facility] TEST, URINE 2020-05-11 02:26:00 [facility] - URINE 2020-05-11 02:26:00 [facility] - 4 [facility] ER PANEL URINALYSIS 2020-05-11 02:26:00 Adam Solis [facility] CREATINE KINASE 2020-05-11 01:50:00 Adam Solis [facility] COMP. METABOLIC PANEL 2020-05-11 01:50:00 Adam Solis Un [facility] ([id number]) [facility] SALICYLATE 2020-05-11 01:50:00 Adam Solis [facility] ETHANOL 2020-05-11 01:50:00 Adam Solis [facility] CBC WITH DIFF 2020-05-11 01:50:00 Adam Solis [facility] SALICYLATE 2020-03-08 20:17:00 Banlisette Solis, [facility] GALV/CLC ONLY - URINE 2020-03-08 18:04:00 Lilibeth Solis, [facility] DRUG (IMMUNOASSAY) - [facility] COMPREHENSIVE DRUG SCREEN URINALYSIS 2020-03-08 18:04:00 Lilibeth oSlis [facility] LIPASE 2020-03-08 12:36:00 Lilibeth Solis, [facility] TROPONIN I 2020-03-08 12:36:00 Lilibeth Solis, [facility] COMP. METABOLIC PANEL 2020-03-08 12:36:00 Lilibeth Solis [facility] ([id number]) [facility] ETHANOL 2020-03-08 12:36:00 Lilibeth Solis, [facility] CBC WITH DIFF 2020-03-08 12:36:00 Lilibeth Solis [facility] EKG-12 LEAD 2020-03-08 12:26:13 Lilibeth Solis, [facility] CT HEAD WO CONTRAST 2020-03-08 11:45:24 Lilibeth [facility] EKG-12 LEAD 2020-03-08 11:08:53 Lilibeth Solis, [facility] EXTERNAL PROVIDER 2019-08-25 05:01:00 Doctor Unassigned, No [facility] RECORDS Name Medical Branch CBC WITH DIFFERENTIAL 2019-07-29 02:38:00 Leroy Rodriguez [facility] COMP. METABOLIC PANEL 2019-07-29 02:37:00 Michael [facility] ([id number]) [facility] SALICYLATE 2019-07-29 02:37:00 [facility] ETHANOL 2019-07-29 02:37:00 [facility] GALV/CLC ONLY - URINE 2019-07-29 02:37:00 [facility] DRUG (IMMUNOASSAY) - 4 [facility] ER PANEL URINALYSIS 2019-07-29 02:37:00 [facility] EKG-12 LEAD 2019-07-29 02:17:45 [facility] US GALL BLADDER 2019-01-31 22:40:33 Shant [facility] POCT TEST 2019-01-31 20:47:00 Darwin Bran [facility] LIPASE 2019-01-31 20:40:00 Shant [facility] TROPONIN I 2019-01-31 20:40:00 Shant [facility] COMP. METABOLIC PANEL 2019-01-31 20:40:00 [facility] ([id number]) [facility] GALV/CLC ONLY - URINE 2019-01-31 20:40:00 Shant Darwin [facility] DRUG (IMMUNOASSAY) 4 [facility] ranch ER PANEL CBC WITH DIFFERENTIAL 2019-01-31 20:40:00 [facility] 2019-01-31 20:40:00 Shant [facility] EKG-12 LEAD 2019-01-31 20:36:54 Shant [facility] Nominal Fee 2018-11-23 00:00:00 [facility] and Wellness Established Patient 2018-11-23 00:00:00 [facility] Health and Office Visit-Level Four Wellness Nominal Fee 2017-05-06 00:00:00 [facility] and Wellness Complete Blood Count 2017-05-06 00:00:00 [facility] Health and (CBC) Wellness Established Patient 2017-05-06 00:00:00 [facility] Health and Office Visit-Level Three Tayerk s Urinalysis, nine drug 2017-05-06 00:00:00 [facility] l Health and screen Wellness Nominal Fee 2017-03-29 00:00:00 [facility] Heal th and Wellness Established Patient 2017-03-29 00:00:00 [facility] Health and Office Visit-Level Three Radha s Nominal Fee 2016-12-13 00:00:00 [facility] Heal th and Wellness Established Patient 2016-12-13 00:00:00 [facility] Health and Office Visit-Level Three Radha s Nominal Fee 2016-11-16 00:00:00 [facility] th and Wellness Radiologic examination, 2016-11-16 00:00:00 Coas wilfrido Health and knee, 3 views (AP, Wellness Lateral [place] oblique) New Patient Office 2016-11-16 00:00:00 [facility] ealt and Visit-Level Three Wellness Plan of Care Planned Activity Planned Date Details Comments Source Future Scheduled 2023-02-23 IMM Influenza [facility] 00:00:00 Seasonal (>/= 19 yrs) [code = IMM Influenza Seasonal (>/= 19 yrs)] Future Scheduled 2022-11-10 Screening for [facility] Test 08:18:22 malignant neoplasm of colon (procedure) [code = 556919669] Future Scheduled 2022-11-10 Screening for [facility] Test 08:18:22 malignant neoplasm of colon (procedure) [code = 492610751] Future Scheduled 2022-11-10 Screening for [facility] Test 08:18:22 malignant neoplasm of colon (procedure) [code = 917430999] Future Scheduled 2022-11-10 COVID-19 VACCINE (#1) [facility] Test 08:18:22 [code = COVID-19 VACCINE (#1)] Future Scheduled 2022-11-10 Screening for [facility] Test 08:18:22 malignant neoplasm of cervix (procedure) [code = 272517023] Future Scheduled 2022-11-10 BREAST CANCER [facility] Test 08:18:22 SCREENING [code = BREAST CANCER SCREENING] Future Scheduled 2022-11-10 [facility] Test 08:18:22 malignant neoplasm of colon (procedure) [code = 856198575] Future Scheduled 2022-11-10 Screening for [facility] Test 08:18:22 malignant neoplasm of colon (procedure) [code = 620199123] Future Scheduled 2022-11-10 SHINGLES VACCINES (1 Met [facility] Test 08:18:22 of 2) [code = SHINGLES VACCINES (1 of 2)] Future Scheduled 2022-11-10 INFLUENZA VACCINE Method [facility] Test 08:18:22 [code = INFLUENZA VACCINE] Future Scheduled 2022-02-23 IMM Influenza [facility] Test 00:00:00 Seasonal (>/= 19 yrs) [code = IMM Influenza Seasonal (>/= 19 yrs)] Future Scheduled 2022-02-23 IMM Influenza [facility] Test 00:00:00 Seasonal (>/= 19 yrs) [code = IMM Influenza Seasonal (>/= 19 yrs)] Future Scheduled 2022-02-23 IMM Influenza [facility] Test 00:00:00 Seasonal (>/= 19 yrs) [code = IMM Influenza Seasonal (>/= 19 yrs)] Future Scheduled 2022-02-23 IMM Influenza [facility] Test 00:00:00 Seasonal (>/= 19 yrs) [code = IMM Influenza Seasonal (>/= 19 yrs)] Future Scheduled 2022-02-21 HEPATITIS B VACCINES Met [facility] Test 01:35:30 (1 of 3 - 3-dose series) [code = HEPATITIS B VACCINES (1 of 3 - 3-dose series)] Future Scheduled 2022-02-21 COVID-19 VACCINE (#1) [facility] Test 01:35:30 [code = COVID-19 VACCINE (#1)] Future Scheduled 2022-02-21 Hepatitis C screening [facility] Test 01:35:30 (procedure) [code = 865019742] Future Scheduled 2022-02-21 Screening for [facility] Test 01:35:30 malignant neoplasm of cervix (procedure) [code = 540932288] Future Scheduled 2022-02-21 BREAST CANCER [facility] Test 01:35:30 SCREENING [code = BREAST CANCER SCREENING] Future Scheduled 2022-02-21 COLONOSCOPY SCREENING [facility] Test 01:35:30 [code = COLONOSCOPY SCREENING] Future Scheduled 2022-02-21 SHINGLES VACCINES (1 [facility] Test 01:35:30 of 2) [code = SHINGLES VACCINES (1 of 2)] Future Scheduled 2022-02-21 INFLUENZA VACCINE Method [facility] Test 01:35:30 [code = INFLUENZA VACCINE] Future Scheduled 2022-02-21 HEPATITIS B VACCINES Met [facility] Test 01:35:30 (1 of 3 - 3-dose series) [code = HEPATITIS B VACCINES (1 of 3 - 3-dose series)] Future Scheduled 2022-02-21 COVID-19 VACCINE (#1) Me [facility] Test 01:35:30 [code = COVID-19 VACCINE (#1)] Future Scheduled 2022-02-21 Hepatitis C screening [facility] Test 01:35:30 (procedure) [code = 989939058] Future Scheduled 2022-02-21 Screening for [facility] Test 01:35:30 malignant neoplasm of cervix (procedure) [code = 823072423] Future Scheduled 2022-02-21 BREAST CANCER [facility] Test 01:35:30 SCREENING [code = BREAST CANCER SCREENING] Future Scheduled 2022-02-21 COLONOSCOPY SCREENING [facility] Test 01:35:30 [code = COLONOSCOPY SCREENING] Future Scheduled 2022-02-21 SHINGLES VACCINES (1 Met [facility] Test 01:35:30 of 2) [code = SHINGLES VACCINES (1 of 2)] Future Scheduled 2022-02-21 INFLUENZA VACCINE Method [facility] Test 01:35:30 [code = INFLUENZA VACCINE] Future Scheduled 2022-01-22 Hepatitis C screening [facility] Test 09:50:53 (procedure) [code = 937273727] Future Scheduled 2022-01-22 Screening for [facility] Test 09:50:53 malignant neoplasm of cervix (procedure) [code = 592893524] Future Scheduled 2022-01-22 BREAST CANCER [facility] Test 09:50:53 SCREENING [code = BREAST CANCER SCREENING] Future Scheduled 2022-01-22 COLONOSCOPY SCREENING [facility] Test 09:50:53 [code = COLONOSCOPY SCREENING] Future Scheduled 2022-01-22 SHINGLES VACCINES (1 Met [facility] Test 09:50:53 of 2) [code = SHINGLES VACCINES (1 of 2)] Future Scheduled 2022-01-22 INFLUENZA VACCINE [facility] Test 09:50:53 [code = INFLUENZA VACCINE] Future Scheduled 2022-01-22 HEPATITIS B VACCINES Met [facility] Test 09:50:53 (1 of 3 - 3-dose series) [code = HEPATITIS B VACCINES (1 of 3 - 3-dose series)] Future Scheduled 2022-01-22 COVID-19 VACCINE (#1) [facility] Test 09:50:53 [code = COVID-19 VACCINE (#1)] Future Scheduled 2022-01-22 Hepatitis C screening [facility] Test 09:50:53 (procedure) [code = 437473032] Future Scheduled 2022-01-22 Screening for [facility] Test 09:50:53 malignant neoplasm of cervix (procedure) [code = 439853740] Future Scheduled 2022-01-22 BREAST CANCER [facility] Test 09:50:53 SCREENING [code = BREAST CANCER SCREENING] Future Scheduled 2022-01-22 COLONOSCOPY SCREENING [facility] Test 09:50:53 [code = COLONOSCOPY SCREENING] Future Scheduled 2022-01-22 SHINGLES VACCINES (1 Met [facility] Test 09:50:53 of 2) [code = SHINGLES VACCINES (1 of 2)] Future Scheduled 2022-01-22 INFLUENZA VACCINE Method [facility] Test 09:50:53 [code = INFLUENZA VACCINE] Future Scheduled 2022-01-22 HEPATITIS B VACCINES Met [facility] Test 09:50:53 (1 of 3 - 3-dose series) [code = HEPATITIS B VACCINES (1 of 3 - 3-dose series)] Future Scheduled 2022-01-22 COVID-19 VACCINE (#1) [facility] Test 09:50:53 [code = COVID-19 VACCINE (#1)] Future Scheduled 2018 Screening for [facility] 00:00:00 malignant neoplasm of colon (procedure) [code = 659543013] Future Scheduled 2018 Screening for [facility] 00:00:00 malignant neoplasm of colon (procedure) [code = 150213018] Future Scheduled 2018 Screening for [facility] Test 00:00:00 malignant neoplasm of colon (procedure) [code = 229539759] Future Scheduled 2018 Screening for [facility] Test 00:00:00 malignant neoplasm of colon (procedure) [code = 202087857] Future Scheduled 2018 Screening for [facility] 00:00:00 malignant neoplasm of colon (procedure) [code = 766030147] Future Scheduled 2014-10-18 Screening for [facility] 00:00:00 malignant neoplasm of cervix (procedure) [code = 952462579] Future Scheduled 2014-10-18 Screening for [facility] 00:00:00 malignant neoplasm of cervix (procedure) [code = 473990976] Future Scheduled 2014-10-18 Screening for [facility] 00:00:00 malignant neoplasm of cervix (procedure) [code = 176471349] Future Scheduled 2014-10-18 [facility]ening for [facility] 00:00:00 malignant neoplasm of cervix (procedure) [code = 503372734] Future Scheduled 2014-10-18 [facility]ening for [facility] 00:00:00 malignant neoplasm of cervix (procedure) [code = 111978625] Future Scheduled 2010-11-30 [facility] Test 00:00:00 (Yearly) [code = Breast Cancer Scrn (Yearly)] Future Scheduled 2010-11-30 [facility] Test 00:00:00 (Yearly) [code = Breast Cancer Scrn (Yearly)] Future Scheduled 2010-11-30 [facility] Test 00:00:00 (Yearly) [code = Breast Cancer Scrn (Yearly)] Future Scheduled 2010-11-30 [facility] Test 00:00:00 (Yearly) [code = Breast Cancer Scrn (Yearly)] Future Scheduled 2010-11-30 [facility] Test 00:00:00 (Yearly) [code = Breast Cancer Scrn (Yearly)] Future Scheduled 1998 [facility] for [facility] 00:00:00 malignant neoplasm of cervix (procedure) [code = 408464450] Future Scheduled 1998 Scre[facility] for [facility] 00:00:00 malignant neoplasm of cervix (procedure) [code = 392601363] Future Scheduled 1998 [facility] for [facility] 00:00:00 malignant neoplasm of cervix (procedure) [code = 871368285] Future Scheduled 1998 [facility] for [facility] 00:00:00 malignant neoplasm of cervix (procedure) [code = 184045661] Future Scheduled 1998 [facility] for [facility] 00:00:00 malignant neoplasm of cervix (procedure) [code = 869012689] Future Scheduled 1970 COVID-19 Vaccine (#1) [facility] Test 00:00:00 [code = COVID-19 Vaccine (#1)] Future Scheduled 1970 COVID-19 Vaccine (#1) [facility] Test 00:00:00 [code = COVID-19 Vaccine (#1)] Future Scheduled 1970 COVID-19 Vaccine (#1) [facility] Test 00:00:00 [code = COVID-19 Vaccine (#1)] Future Scheduled 1970 COVID-19 Vaccine (#1) [facility] Test 00:00:00 [code = COVID-19 Vaccine (#1)] Future Scheduled 1970 COVID-19 Vaccine (#1) [facility] Test 00:00:00 [code = COVID-19 Vaccine (#1)] Future Scheduled 1970 Fluoride Varnish [facility] Test 00:00:00 [code = Fluoride Varnish] Future Scheduled 1970 Fluoride Varnish [facility] Test 00:00:00 [code = Fluoride Varnish] Future Scheduled 1970 Fluoride Varnish [facility] Test 00:00:00 [code = Fluoride Varnish] Future Scheduled 1970 Fluoride Varnish [facility] Test 00:00:00 [code = Fluoride Varnish] Encounters Start End Encounter Admission Attending Care Care Encounter Source Date/Time Date/Time Type Type Clinicians Facility Department ID 2022-12-23 2022-12-23 Outpatient GENA TOMLIN [id number] [facility] 10:10:00 10:10:00 ADAM noyola 2022-11-25 2022-11-25 Outpatient GENA RAMIREZ [id number] [facility] 13:00:00 13:00:00 FLORES noyola 2022-11-21 2022-11-21 Outpatient GENA RAMIREZ [id number] [facility] 00:00:00 00:00:00 FLORES Seybol d 2022-11-21 2022-11-21 Outpatient GENA RAMIREZ [id number] [facility] 00:00:00 00:00:00 FLORES Seybol d 2022-11-20 2022-11-20 Outpatient GENA BALES [id number] [facility] 17:30:00 17:30:00 VIDEOVISITN Se ybold OW 2022-11-20 2022-11-20 Outpatient GENA PANCHAL [id number] [facility] 17:15:00 17:15:00 KATY Seybol d 2022-11-18 2022-11-18 Outpatient GENA TOMLIN [id number] [facility] 09:30:00 09:30:00 ADAM Seybol d 2022-11-15 2022-11-15 Outpatient GENA TOMLIN [id number] [facility] 00:00:00 00:00:00 ADAM Seybol d 2022-11-12 2022-11-12 Outpatient GENA RAMIREZ [id number] [facility] 00:00:00 00:00:00 FLORES Seybol d 2022-11-07 2022-11-07 Outpatient GENA RAMIREZ [id number] [facility] 00:00:00 00:00:00 FLORES Seybol d 2022-10-29 2022-10-29 Outpatient GENA RAMIREZ [id number] [facility] 13:30:00 13:30:00 FLORES Seybol d 2022-10-17 2022-10-17 Outpatient GENA GUADALUPE [id number] [facility] 00:00:00 00:00:00 KRISTIN Seybo ld 2022-10-16 2022-10-16 Outpatient LAB90 GENA WATKINS [id number] [facility] 14:55:00 14:55:00 Seybol d 2022-10-16 2022-10-16 Outpatient GENA RAMIREZ [id number] [facility] 14:00:00 14:00:00 FLORES Seybol d 2022-10-08 2022-10-08 Outpatient LAB47 GENA WATKINS [id number] [facility] 15:30:00 15:30:00 Seybol d 2022-10-08 2022-10-08 Outpatient COLLINS GENA WATKINS [id number] [facility] 14:45:00 14:45:00 KRISTIN Seybo ld 2022-10-08 2022-10-08 Outpatient GENA WATKINS [id number] [facility] 14:40:00 14:40:00 Seybol d 2022-09-21 2022-09-21 Outpatient GENA GOODRICH [id number] [facility] 00:00:00 00:00:00 SRI Seybol d 2022-09-21 2022-09-21 Outpatient GENA GOODRICH [id number] [facility] 00:00:00 00:00:00 SRI Seybol d 2022-09-17 2022-09-17 Outpatient ZALAGENA KENNEDY [id number] [facility] 10:30:00 10:30:00 JOSE Seybol d 2022-09-06 2022-09-06 Outpatient GENA MERCADO [id number] [facility] 08:00:00 08:00:00 RENEE Seybol d 2022-08-31 2022-08-31 Outpatient GRAND PORTAGEGENA [id number] Gena 09:45:00 09:45:00 SOPHIA Seybol d 2022-08-29 2022-08-29 Outpatient GENA GOODRICH [id number] [facility] 16:30:00 16:30:00 SRI Seybol d 2022-02-19 2022-02-19 Outpatient KENDRA Yanes Patrick [id number] [facility] 13:49:00 13:49:00 [facility] 2022-02-19 2022-02-19 Outpatient KENDRA Yanes [id number] [facility] 13:49:00 13:49:00 [facility] 10-443c-8eb [id number] [facility] [id number] a nd 015 [id number] [facility] 2022-02-06 2022-02-06 Outpatient KENDRA Ynaes Patrick [id number] [facility] 21:05:00 21:05:00 Zaira [facility] 2022-02-06 2022-02-06 Outpatient Ahmed, CHW [id number] [id number] [facility] 21:05:00 21:05:00 Zaira 10-443c-8eb [id number] [facility] [id number] a nd 015 [id number] Radha 2022-01-30 2022-01-30 Outpatient Ahmed, CHW CHW [id number] [facility] 17:30:00 17:30:00 Zaira [facility] 2022-01-30 2022-01-30 Outpatient Ahmick, CHW [id number] [facility] [id number] [facility] 17:30:00 17:30:00 Zaira Irvin443c-8eb [id number] [facility] [id number] a nd 015 [id number] Radah 2022-01-22 2022-01-22 Outpatient [facility]House, CHW CHW [id number] [address] [place] [address] 14:30:00 14:30:00 [facility] Radha 2022-01-22 2022-01-22 Outpatient Joaquín, CHANDRIKAW [id number] [facility] 14:30:00 14:30:00 aZira Irvin443c-8eb [id number]-4736-9 [facility] [id number] a nd 015 [id number] Radha 2022-01-22 2022-01-22 Outpatient [facility], CHW W [id number] [facility] 10:45:00 10:45:00 Zechariah [facility] and [facility] 2022-01-22 2022-01-22 Outpatient [facility], W [id number] [facility] 10:45:00 10:45:00 Zechariah 10-443c-8eb [id number] [facility] [id number] a nd 015 [id number] Radha 2021-12-20 2021-12-20 Outpatient Blank W W [id number] [facility] 15:30:00 15:30:00 [facility], [facility] 2021-12-20 2021-12-20 Outpatient KENDRA Stein [id number] [facility] 15:30:00 15:30:00 [facility] 10-443c-8eb [id number] [facility] [id number] a nd 015 [id number] [facility] 2021-11-29 2021-11-29 Outpatient KENDRA Stein CHW [id number] [facility] 14:00:00 14:00:00 [facility], [facility] and [facility] 2021-11-29 2021-11-29 Outpatient KENDRA Stein [id number] [facility] 14:00:00 14:00:00 [facility] 10-443c-8eb [id number] [facility] [id number] a nd 015 [id number] [facility] 2021-09-17 2021-09-17 Outpatient Mague COBOSW CHW [id number] [facility] 14:29:00 14:29:00 , [facility] and [facility] 2021-03-21 2021-03-23 Inpatient Venkatesh Gardiner [facility] [id number] [address] [place] [address] 13:00:00 12:00:00 13 [facility] 2021-01-09 2021-01-09 Outpatient GCCOVIDV GCCOVIDV [id number] [facility] 00:00:00 00:00:00 V 2020-12-19 2020-12-19 Outpatient GCCOVIDV GCCOVIDV [id number] [facility] 00:00:00 00:00:00 V 2020-12-04 2020-12-04 Outpatient KENDRA Gamboa CHW [id number] [facility] 08:26:00 08:26:00 [facility] 2020-11-14 2020-11-14 Outpatient KENDRA Gamboa CHW [id number] [facility] 09:47:00 09:47:00 [facility] 2020-11-07 2020-11-07 Outpatient KENDRA Meneses CHW [id number] [facility] 12:55:00 12:55:00 [facility] 2020-11-06 2020-11-06 Outpatient Cory STRAUSS [facility] [id number] Univers 13:45:00 13:45:00 [facility] 2020-10-31 2020-10-31 Outpatient KENDRA Meneses CHW [id number] [facility] 15:45:00 15:45:00 [facility] 2020-10-31 2020-10-31 [facility] [id number] [facility] 15:45:00 15:45:00 d Patient 10-443c-8eb [id number] -b Health Office [id number] a mo Visit-[facility] 015 [id number] Kacey strickland melchor [facility] s 2020-10-16 2020-10-16 Outpatient Cory STR[facility]USS [facility] [id number] Univers 16:00:00 16:00:00 [facility] 2020-10-14 2020-10-14 Orders Doctor CASSIDY 1.2.840.114 [id number] 00:00:00 00:00:00 Only Unassigned, ARELI 350.1.13.10 [facility] 4.2.7.2.686 [id number] 009 2020-10-14 2020-10-14 Letter Doctor CASSIDY 1.2.840.114 [id number] 00:00:00 00:00:00 (Out) Unassigned, ARELI 350.1.13.10 [facility] 4.2.7.2.686 [id number] [facility] 2020-10-14 2020-10-14 Orders Doctor CASSIDY 1.2.840.114 [id number] [facility] 00:00:00 00:00:00 Only Unassigned, ARELI 350.1.13.10 [facility] [facility] 4.2.7.2.686 Johnny as [phone] [address] 2020-10-14 2020-10-14 Letter Doctor CASSIDY Torres.2.840.114 [id number] [facility] 00:00:00 00:00:00 (Out) Unassigned, ARELI 350.1.13.10 [facility] [facility] 4.2.7.2.686 Johnny as [id number] [facility] [address] 2020-10-09 2020-10-09 Outpatient R CARLOS A [facility] [id number] Univers 14:00:00 14:00:00 CONCHITA [facility] 2020-10-05 2020-10-05 Office EMMA IyerIT 1.2.840.114 [id number] 08:23:26 09:06:26 Visit [facility] 350.1.13.10 CLINICS 4.2.7.2.686 [id number] 2020-10-05 2020-10-05 Office Jaylon, EMMAIT 1.2.840.114 [id number] Univers 08:23:26 09:06:26 Visit [facility] 350.1.13.10 [place] [id number] [facility] [address] 2020-10-05 2020-10-05 Outpatient R JAYLON [facility] [id number] Univers 08:15:00 08:15:00 [facility] 2020-10-04 2020-10-05 Emergency Lucia, TRAUMA 1.2.939.436 [id number] Univers 23:00:00 03:22:00 Anatoly PATTER[place] 350.1.13.10 [place] [id number] [facility] 014 Branch 2020-10-05 2020-10-05 Orders Doctor CASSIDY 1.2.840.114 [id number] Univers 00:00:00 00:00:00 Only Unassigned, ARELI 350.1.13.10 [facility] [place] [facility] 4.2.7.2.686 Johnny as [phone] [facility] 009 Branch 2020-10-04 2020-10-04 Emergency X [facility] ERT [id number] Univers 23:00:00 23:00:00 ANATOLY [facility] 2020-09-28 2020-09-28 Emergency Mercedes, TRAUMA 1.2.226.359 [id number] Univers 16:47:00 22:16:00 Kojo Ray [place] 350.1.13.10 [place] [id number] [facility] 014 Branch 2020-09-28 2020-09-28 Emergency X MERCEDES, [facility] ERT [id number] Univers 16:47:00 22:16:00 KOJO ity of [facility] 2020-05-10 2020-05-11 Emergency Morrical, Adam O TRAUMA 1.2. 840.114 [id number] Univers 18:32:00 11:46:00 Eden Longo [place] 350.1.13.10 [place] [id number] [facility] 014 Branch 2020-05-10 2020-05-10 Emergency X IRMA, [facility] ERT [id number] Univers 18:32:00 18:32:00 ADAM ity of [facility] 2020-03-08 2020-03-08 Emergency Banipal Irma, Carlie TRAUMA 1.2.840.114 [id number] Univers 05:36:00 17:57:00 Leroy Rodriguez [place] 350.1. 13.10 [place] [id number] [place] [address] Branch 2020-03-08 2020-03-08 Emergency X [facility] ERT [id number] Univers 05:30:00 05:30:00 ity of [facility] 2020-02-17 2020-02-17 Outpatient KENDRA Krishna W [id number] [facility] 15:11:00 15:11:00 [facility] 2019-08-25 2019-08-25 Orders Doctor CASSIDY 1.2.840.114 [id number] Univers 00:00:00 00:00:00 Only Unassigned, ARELI 350.1.13.[address] [place] [facility] 4.2.7.2.686 Johnny as [id number] [place] [address] Branch 2019-08-06 2019-08-06 Outpatient [facility] [id number] [place] 00:00:00 00:00:[address] 2019-07-29 2019-08-05 Inpatient SHIRLEY[facility] 023 [id number] [place] 00:00:00 00:00:[address] JOSEE [address] 2019-07-28 2019-07-29 Emergency [place] TRAUMA 1.2.840.114 [id number] Univers 19:09:08 09:20:00 , Leroy CENTER 350.1.13.10 [place] [id number] [facility] 014 Branch 2019-07-28 2019-07-28 Emergency X AUFDERHEIDE [facility] ERT [id number] Univers 19:09:08 19:09:08 , LEROY ity of [facility] [place] [facility] 2019-01-31 2019-01-31 Emergency Bran, TRAUMA 1.2.840.114 [id number] Univers 15:04:52 19:00:00 [facility] 350.1.13.10 it y of 4.2.7.2.686 Shane s [id number] [place] [address] Branch 2018-11-23 2018-11-23 Outpatient KENDRA Smith CHW [id number] [facility] 14:00:00 14:00:00 [facility] s 2018-11-23 2018-11-23 [facility] [id number] [place] 14:00:00 14:00:00 d Patient 10-443c-8eb [id number]-4277 -a Health Office [id number] a nd Visit-Leve 015 [id number] Kacey roche Four s 2017-05-06 2017-05-06 [facility] [id number] [place] 15:20:00 15:20:00 d Patient 10-443c-8eb [id number] -b Health Office [id number] a nd Visit-Leve 015 [id number] Kacey roche Three s 2017-03-29 2017-03-29 KENDRA Henley [id number] [place] 10:40:00 10:40:00 d Patient Brandan 27-44ba-85b i15-6awz -a Health Office [id number] a nd Visit-Leve 9af cced00 Kacey Leahy s 2016-12-13 2016-12-13 Establishe CHW [id number] 2bb [id number] [place] 09:30:00 09:30:00 d Patient 27-44ba-85b 7db-46ee -8 Health Office [id number] a nd Visit-Leve 9af [id number] Kacey Leahy s 2016-12-02 2016-12-02 [facility] [id number] [facility] 18:01:00 18:01:00 [facility] 2016-11-16 2016[facility]11-16 [id number] [facility] 10:00:00 10:00:00 Patient Isabel44ba-85b [id number] Health Office [id number] a nd Visit-Leve 9af [id number] Kacey Leahy s Results Test Description Test Time Test Comments Results Result Comments Source Panel Description: Hemoglobin A1c/Hemoglobin.total in Blood 2022-01-23 10:16:00 Test Item Value Reference Range Interpretation Comme nts Hemoglobin A1c (test code = 5.7 % 4.8-5.6 H . Prediabetes: 5.7 - 6.4 Diabetes: 4548-4) >6.4 Glycemic c ontrol for adults with diabetes: <7.0 [facility] Description: Lipid [id number] 06:36:00 Test Item Value Reference Range Interpretation Comments Cholesterol, Total (test code = 230 mg/dL 100-199 H 2093-3) Triglycerides (test code = 2571-8) 172 mg/dL 0-149 H HDL Cholesterol (test code = 50 mg/dL >39 2085-9) VLDL Cholesterol Gricel (test code = 31 mg/dL 5-40 38517-4) LDL Chol Calc (NIH) (test code = 149 mg/dL 0-99 H 74460-4) Comment: (test code = 03038-8) [facility] Description: Comp. Metabolic Panel (14) 2022-01-23 05:49:00 Test Item Value Reference Range Interpretation Comments Glucose (test code = 2345-7) 89 mg/dL 65-99 BUN (test code = 3094-0) 13 mg/dL 6-24 Creatinine (test code = 0.60 mg/dL 0.57-1.00 2160-0) eGFR (test code = 80236-1) 107 mL/min/1.73 >59 BUN/Creatinine Ratio (test 22 9-23 code = 3097-3) Sodium (test code = 2951-2) 140 mmol/L 134-144 Potassium (test code = 3.9 mmol/L 3.5-5.2 2823-3) Chloride (test code = 2075-0) 100 mmol/L 96-106 Carbon Dioxide, Total (test 25 mmol/L 20-29 code = 2028-9) Calcium (test code = 72061-3) 10.0 mg/dL 8.7-10.2 Protein, Total (test code = 6.8 g/dL 6.0-8.5 2885-2) Albumin (test code = 1751-7) 4.5 g/dL 3.8-4.9 Globulin, Total (test code = 2.3 g/dL 1.5-4.5 68344-8) A/G Ratio (test code = 2.0 1.2-2.2 1759-0) Bilirubin, Total (test code = <0.2 0.0-1.2 1975-2) Alkaline Phosphatase (test 71 IU/L 44-121 code = 6768-6) AST (SGOT) (test code = 13 IU/L 0-40 1920-8) ALT (SGPT) (test code = 13 IU/L 0-32 1742-6) [facility] Description: Platelets [#/volume] in Blood by Automated [id number] 03:49:00 Test Item Value Reference Range Interpretation Comments WBC (test code = 6690-2) 9.3 x10E3/uL 3.4-10.8 RBC (test code = 789-8) 4.55 x10E6/uL 3.77-5.28 Hemoglobin (test code = 718-7) 13.0 g/dL 11.1-15.9 Hematocrit (test code = 4544-3) 40.8 % 34.0-46.6 MCV (test code = 787-2) 90 fL 79-97 MCH (test code = 785-6) 28.6 pg 26.6-33.0 MCHC (test code = 786-4) 31.9 g/dL 31.5-35.7 RDW (test code = 788-0) 13.1 % 11.7-15.4 Platelets (test code = 777-3) 328 x10E3/uL 150-450 Neutrophils (test code = 770-8) 52 % Not Estab. Lymphs (test code = 736-9) 38 % Not Estab. Monocytes (test code = 5905-5) 7 % Not Estab. Eos (test code = 713-8) 2 % Not Estab. Basos (test code = 706-2) 1 % Not Estab. Neutrophils (Absolute) (test 4.9 x10E3/uL 1.4-7.0 code = 751-8) Lymphs (Absolute) (test code = 3.5 x10E3/uL 0.7-3.1 H 731-0) Monocytes(Absolute) (test code 0.6 x10E3/uL 0.1-0.9 = 742-7) Eos (Absolute) (test code = 0.2 x10E3/uL 0.0-0.4 711-2) Baso (Absolute) (test code = 0.1 x10E3/uL 0.0-0.2 704-7) Immature Granulocytes (test 0 % Not Estab. code = 67212-9) Immature Grans (Abs) (test code 0.0 x10E3/uL 0.0-0.1 = 32417-5) NRBC (test code = 49360-1) Hematology Comments: (test code = 74191-1) [facility] ABDOMEN [id number] 13:15:00 [facility] : 1970 Sex: F FAX: Venkatesh Duggan MD [phone] [place]: St: REG Name: CORINNE DOBBINS [facility] : 1970 Age/S: 50/F [address] [facility] Unit #: [id number] Loc: [place], [place]: [place] [id number] Acct: [id number] Dis Date: Status: REG CLI PHONE #: [phone] Exam Date: 03/23/2021 1235 FAX #: [phone] Reason: RUQ PAIN, HERNIA EXAMS: CPT CODE: [id number] US ABDOMEN LTD [id number] EXAMINATION: - US ABDOMEN LTD COMPARISON: CT scan of the abdomen and pelvis performed September 06, 2016 HISTORY: Right upperquadrant pain, hernia LOCATION CODE: C3 TECHNIQUE: Multiplanar grayscale and Doppler ultrasound images of the right upper quadrant of the abdomen are submitted for review. FINDINGS: PANCREAS: The headand body of the pancreas are visualized and are normal. The tail is obscured by bowel gas. LIVER: The liver is normal in size and echotexture, measuring 15.2 cm in the right midclavicular line. No masses are seen. GALLBLADDER AND BILIARY TREE: The gallbladder is normal. The common bile duct measures 3mm RIGHT KIDNEY: The right kidney measures 10.5 x 4.6 x 6.0 cm. A 5 mm echogenic focus is present in the upper pole and may represent a nonobstructing stone. FREE FLUID: None VESSELS: The visualized portions of the abdominal aorta and inferior vena cava are normal. The portal vein is patent, with appropriate directional flow Scanning around the umbilicus reveals the presence of a fat-containing hernia. A similar-appearing hernia was seen in this area on the prior CT examination and the area appearsrelatively stable to mildly increased in prominence. It measures approximately 7.5 x 3.5 x 7.3 cm (previously 7.1 x 3.9 x 6.5 cm). IMPRESSION: Stable to mild increase in prominence of a fat-containingumbilical hernia Echogenic focus in the upper pole the right kidney, likely nonobstructing stone PAGE 1 Signed Report (CONTINUED) FAX: Venkatesh Duggan MD [phone] [place]: St: REG Name: CORINNE DOBBINS [facility] :1970 Age/S: 50/F [address] [facility] Unit #: [id number] Loc: [place], [place]: [place] [id number] Acct: [id number] Dis Date: Status: REG CLI PHONE #: [phone] Exam Date: 03/23/2021 1235 FAX #: [phone] Reason: RUQ PAIN, HERNIA EXAMS: CPT CODE: [id number] ABDOMEN LTD 38599 (Continued) at 1315 Reported and signed by: Zuir Calderón M.D CC: Venkatesh Duggan MD Technologist: MILADYS WINSTON Trnscrd Date/Time/By: 03/23/2021 (1315) : By: [email or web address] PAGE 2 Signed Report FAX: Venkatesh Duggan MD [phone] [place]: St: REG- Name: CORINNE DOBBINS [facility] : 1970 Age/S: 50/F [address] [employer] Unit #: [id number] [place]: [place]: [place] [id number] Acct: [id number] Dis Date: Status: REG CLI PHONE #: [phone] Exam Date: 03/23/2021 1235 FAX #: [phone] Reason: RUQ PAIN, HERNIA EXAMS: CPT CODE:[id number] US ABDOMEN LTD 57889 (Continued) Orig Print D/T: S: 03/23/2021 (1318) PAGE 3 Signed ReportCOMP. METABOLIC PANEL ([id number])2020-10-05 07:19:42 Test Item Value Reference Range Interpretation Comments NA (test code = 134 mmol/L 135-145 L [id number]) K (test code = 3.9 mmol/L 3.5-5.0 9641302283) CL (test code = 100 mmol/L 98-108 7942591612) CO2 TOTAL (test code = 29 mmol/L 23-31 5524437555) AGAP (test code = 2-16 0874843982) BUN (test code = 23 mg/dL 7-23 9497921475) GLUCOSE (test code = 106 mg/dL 70-110 6590766769) CREATININE (test code = 0.85 mg/dL 0.50-1.04 1735836209) TOTAL BILI (test code = 0.3 mg/dL 0.1-1.0 3276501942) CALCIUM (test code = 9.4 mg/dL 8.6-10.6 6459957241) T PROTEIN (test code = 6.1 g/dL 6.3-8.2 L 8850618046) ALBUMIN (test code = 3.5 g/dL 3.5-5.0 3526323260) ALK PHOS (test code = 64 U/L 34-122 8881587808) ALTv (test code = 13 U/L 5-35 1742-6) AST(SGOT) (test code = 18 U/L 13-40 9019440361) eGFR (test code = mL/min/1.73m2 0622931247) DENNY (test code = DENNY) Association of Glomerular Filtration Rate (GFR) and Staging of Kidney Disease* + --+ --+ ------+| GFR (mL/min/1.73 m2) ?| With Kidney Damage ?| ?Without Kidney Damage+ --------+ --------+ +| ?>90 ?| ?Stage one ?| ? Normal ?+ ---+ ---+ -------+| ?60-89 ?| ?Stage two ?| ? Decreased GFR ? + --+ --+ ------+| ?30-59 ?| ?Stage three ?| ? Stage three ? + --+ --+ ------+| ?15-29 ?| ?Stage four ? | ? Stage four ?+ ---+ ---+ -------+| ?<15 (or dialysis) ? ?| ?Stage five ? | ? Stage five ?+ ---+ ---+ -------+ *Each stage assumes the associated GFR level has been in effect for at least three months. ?Stages 1 to 5, with or without kidney disease, indicate chronic kidney disease. Notes: Determination of stages one and two (with eGFR >59mL/min/1.73 m2) requires estimation of kidney damage for at least three months as defined by structural or functional abnormalities of the kidney, manifested by either:Pathological abnormalities or Markers of kidney damage (including abnormalities in the composition of the blood or urine or abnormalities in imaging tests). Lab Interpretation Abnormal (test code = 36693-9) [facility] 06:13:09 Test Item Value Reference Range Interpretation Comments LIPASE (test code = 4059056767) 86 U/L 0-220 Lab Interpretation (test code = Normal 91722-2) [facility]2021[facility]-13 06:11:52 Test Item Value Reference Range Interpretation Comments APPEARANCE (test code = Clear Clear 7797319152) COLOR (test code = Yellow Yellow 9876840633) PH (test code = 4.8-8.0 3561446451) SP GRAVITY (test code = 1.003-1.030 3832096768) GLU U QUAL (test code = Normal Normal 6262424213) BLOOD (test code = Negative Negative 4209151850) KETONES (test code = Negative Negative 4471720848) PROTEIN (test code = Negative Negative 2887-8) UROBILIN (test code = Normal Normal 3088724852) BILIRUBIN (test code = Negative Negative 1685361190) NITRITE (test code = Negative Negative 4244132381) LEUK MANPREET (test code = Negative Negative 0641337730) RBC/HPF (test code = See_Comment [Autom ated message] 0861826329) The system [employer] generated this result transmitted ref erence range: 0 - 3 HP F. The reference range was not used to int erpret this result as normal/abnormal . WBC/HPF (test code = See_Comment [Autom ated message] 3296653616) The system [employer] generated this result transmitted ref erence range: 0 - 5 HP F. The reference range was not used to int erpret this result as normal/abnormal . BACTERIA (test code = Negative Negative 8065022493) SQ EPITH (test code = See_Comment [Auto mated message] 8812895668) The system [employer] generated this result transmitted ref erence range: <=2 HPF. The reference range was not used to int erpret this result as normal/abnormal . Lab Interpretation (test Normal code = 46457-3) [facility] WITH [id number] 06:05:29 Test Item Value Reference Range Interpretation Comments WBC (test code = See_Comment [Automated 1790-2) message] The sy stem which generated this result transmitted reference range : 4.30 - 11.10 10*3/?L. The reference range was not used to interpret this result as normal/abnormal . RBC (test code = See_Comment [Automated 789-8) message] The sy stem which generated this result transmitted reference range : 3.93 - 5.25 10*6/?L. The reference range was not used to interpret this result as normal/abnormal . HGB (test code = 13.8 g/dL 11.6-15.0 718-7) HCT (test code = 41.3 % 35.7-45.2 4544-3) MCV (test code = 86.4 fL 80.6-95.5 787-2) MCH (test code = 28.9 pg 25.9-32.8 785-6) MCHC (test code = 33.4 g/dL 31.6-35.1 786-4) RDW-SD (test code = 40.8 fL 39.0-49.9 66236-6) RDW-CV (test code = 13.1 % 12.0-15.5 788-0) PLT (test code = See_Comment H [Automated 777-3) message] The sy stem which generated this result transmitted reference range : 166 - 358 10*3/ ?L. The reference r pako was not used to interpret this result as normal/abnormal . MPV (test code = 9.4 fL 9.5-12.9 L 51695-4) NRBC/100 WBC (test See_Comment [Automat ed code = 8854304880) message] The system which generated this result transmitted reference range : 0.0 - 10.0 /100 WBCs. The refer ence range was not u sed to interpret th is result as normal/abnormal . NRBC x10^3 (test code <0.01 See_Comment [Auto mated = 8616338427) message] The s ystem which generated this result transmitted reference range : 10*3/?L. The reference range was not used to interpret this result as normal/abnormal . GRAN MAT (NEUT) % 67.6 % (test code = 770-8) IMM GRAN % (test code 0.30 % = 9647024910) LYMPH % (test code = 24.5 % 736-9) MONO % (test code = 6.2 % 5905-5) EOS % (test code = 0.8 % 713-8) BASO % (test code = 0.6 % 706-2) GRAN MAT x10^3(ANC) 7.21 10*3/uL 1.88-7.09 H (test code = 9961658508) IMM GRAN x10^3 (test 0.03 10*3/uL 0.00-0.06 code = 3442375009) LYMPH x10^3 (test code 2.61 10*3/uL 1.32-3.29 = 731-0) MONO x10^3 (test code 0.66 10*3/uL 0.33-0.92 = 742-7) EOS x10^3 (test code = 0.09 10*3/uL 0.03-0.39 711-2) BASO x10^3 (test code 0.06 10*3/uL 0.01-0.07 = 704-7) Lab Interpretation Abnormal (test code = 79749-0) [facility] CampusUrinalysis2021-05-07 01:12:15 Test Item Value Reference Range Interpretation Comments APPEARANCE (test code = Clear Clear 3020137267) COLOR (test code = Yellow Yellow 4938875083) PH (test code = 4.8-8.0 3473077694) SP GRAVITY (test code = 1.003-1.030 5028121836) GLU U QUAL (test code = Normal Normal 8875663150) BLOOD (test code = Negative Negative 8887991540) KETONES (test code = Negative Negative 4523663619) PROTEIN (test code = Negative Negative 2887-8) UROBILIN (test code = Normal Normal 4707388562) BILIRUBIN (test code = Negative Negative 2413229077) NITRITE (test code = Negative Negative 1476580760) LEUK MANPREET (test code = Negative Negative 1021822809) RBC/HPF (test code = See_Comment [Autom ated message] 3588451455) The system [employer] generated this result transmitted ref erence range: 0 - 3 HP F. The reference range was not used to int erpret this result as normal/abnormal . WBC/HPF (test code = <1 See_Comment [Autom ated message] 1826065033) The system [employer] generated this result transmitted ref erence range: 0 - 5 HP F. The reference range was not used to int erpret this result as normal/abnormal . BACTERIA (test code = Negative Negative 0215592891) SQ EPITH (test code = See_Comment [Auto mated message] 7877466092) The system [employer] generated this result transmitted ref erence range: <=2 HPF. The reference range was not used to int erpret this result as normal/abnormal . Lab Interpretation (test Normal code = 78314-6) [facility] Metabolic Panel (NA, K, CL, CO2, GLUCOSE, BUN, CREATININE, CA)2020-09-28 23:16:48 Test Item Value Reference Range Interpretation Comments NA (test code = 136 mmol/L 135-145 6135019112) K (test code = 4.0 mmol/L 3.5-5.0 8565650973) CL (test code = 97 mmol/L 98-108 L 5113189581) CO2 TOTAL (test code = 30 mmol/L 23-31 7580530081) AGAP (test code = 2-16 4378584407) BUN (test code = 19 mg/dL 7-23 1345807282) GLUCOSE (test code = 107 mg/dL 70-110 5493770484) CREATININE (test code = 0.69 mg/dL 0.50-1.04 1574827481) CALCIUM (test code = 10.2 mg/dL 8.6-10.6 6902698499) eGFR (test code = mL/min/1.73m2 3502311625) DENNY (test code = DENNY) Association of Glomerular Filtration Rate (GFR) and Staging of Kidney Disease* + --+ --+ ------+| GFR (mL/min/1.73 m2) ?| With Kidney Damage ?| ?Without Kidney Damage+ --------+ --------+ +| ?>90 ?| ?Stage one ?| ? Normal ?+ ---+ ---+ -------+| ?60-89 ?| ?Stage two ?| ? Decreased GFR ? + --+ --+ ------+| ?30-59 ?| ?Stage three ?| ? Stage three ? + --+ --+ ------+| ?15-29 ?| ?Stage four ? | ? Stage four ?+ ---+ ---+ -------+| ?<15 (or dialysis) ? ?| ?Stage five ? | ? Stage five ?+ ---+ ---+ -------+ *Each stage assumes the associated GFR level has been in effect for at least three months. ?Stages 1 to 5, with or without kidney disease, indicate chronic kidney disease. Notes: Determination of stages one and two (with eGFR >59mL/min/1.73 m2) requires estimation of kidney damage for at least three months as defined by structural or functional abnormalities of the kidney, manifested by either:Pathological abnormalities or Markers of kidney damage (including abnormalities in the composition of the blood or urine or abnormalities in imaging tests). Lab Interpretation Abnormal (test code = 66663-7) [facility] CampusHepatic Function Panel (ALB, T.PRO, BILI T, BU/BC, ALT, AST, ALK PHOS)2020-09-28 23:16:48 Test Item Value Reference Range Interpretation Comments TOTAL BILI (test code = 7102233597) 0.4 mg/dL 0.1-1.1 BILI UNCON (test code = 9346027415) 0.3 mg/dL 0.1-1.1 BILI CONJ (test code = 4958235307) 0.0 mg/dL 0.0-0.3 T PROTEIN (test code = 7146151618) 7.3 g/dL 6.3-8.2 ALBUMIN (test code = 3864409944) 4.3 g/dL 3.5-5.0 ALK PHOS (test code = 0251135181) 64 U/L 34-122 ALTv (test code = 1742-6) 16 U/L 5-35 AST(SGOT) (test code = 0454277029) 21 U/L 13-40 Lab Interpretation (test code = Normal 32369-3) [facility] CampusLipase [id number] 23:16:48 Test Item Value Reference Range Interpretation Comments LIPASE (test code = 0235208065) 55 U/L 0-220 Lab Interpretation (test code = Normal 84852-6) [facility] CampusLactic Acid Whole [id number] 23:08:21 Test Item Value Reference Range Interpretation Comments LACTIC ACID (test code = 1.41 mmol/L 0.50-2.20 2169395524) Lab Interpretation (test code = Normal 15399-9) [facility] CampusCBC with [id number] 23:06:44 Test Item Value Reference Range Interpretation Comments WBC (test code = See_Comment [Automated 0985-2) message] The sy stem which generated this result transmitted reference range : 4.30 - 11.10 10*3/?L. The reference range was not used to interpret this result as normal/abnormal . RBC (test code = See_Comment [Automated 517-8) message] The sy stem which generated this result transmitted reference range : 3.93 - 5.25 10*6/?L. The reference range was not used to interpret this result as normal/abnormal . HGB (test code = 14.6 g/dL 11.6-15.0 718-7) HCT (test code = 43.7 % 35.7-45.2 4544-3) MCV (test code = 86.4 fL 80.6-95.5 787-2) MCH (test code = 28.9 pg 25.9-32.8 785-6) MCHC (test code = 33.4 g/dL 31.6-35.1 786-4) RDW-SD (test code = 40.6 fL 39.0-49.9 73084-6) RDW-CV (test code = 13.2 % 12.0-15.5 788-0) PLT (test code = See_Comment H [Automated 777-3) message] The sy stem which generated this result transmitted reference range : 166 - 358 10*3/ ?L. The reference r pako was not used to interpret this result as normal/abnormal . MPV (test code = 9.2 fL 9.5-12.9 L 24366-6) NRBC/100 WBC (test See_Comment [Automat ed code = 6349901858) message] The system which generated this result transmitted reference range : 0.0 - 10.0 /100 WBCs. The refer ence range was not u sed to interpret th is result as normal/abnormal . NRBC x10^3 (test code <0.01 See_Comment [Auto mated = 7947161251) message] The s ystem which generated this result transmitted reference range : 10*3/?L. The reference range was not used to interpret this result as normal/abnormal . GRAN MAT (NEUT) % 54.7 % (test code = 770-8) IMM GRAN % (test code 0.30 % = 0949317507) LYMPH % (test code = 34.6 % 736-9) MONO % (test code = 7.8 % 5905-5) EOS % (test code = 2.1 % 713-8) BASO % (test code = 0.5 % 706-2) GRAN MAT x10^3(ANC) 5.15 10*3/uL 1.88-7.09 (test code = 0402269890) IMM GRAN x10^3 (test 0.03 10*3/uL 0.00-0.06 code = 5090247596) LYMPH x10^3 (test code 3.27 10*3/uL 1.32-3.29 = 731-0) MONO x10^3 (test code 0.74 10*3/uL 0.33-0.92 = 742-7) EOS x10^3 (test code = 0.20 10*3/uL 0.03-0.39 711-2) BASO x10^3 (test code 0.05 10*3/uL 0.01-0.07 = 704-7) Lab Interpretation Abnormal (test code = 11684-2) [facility] CampusGALV/CLC ONLY - URINE DRUG (IMMUNOASSAY) - 4 ER [id number] 03:21:00 Test Item Value Reference Range Interpretation Comments AMPHET (test code = Presumptive Positive Negative A 5124755520) Cocaine Metabolite (test Negative Negative code = 6281022333) OPIATES (test code = Negative Negative 3954284297) THC (test code = Negative Negative 8935690230) DENNY (test code = DENNY) Urine Drug Cutoff Ranges Amphetamine: ? 1,000 ng/mLCocaine: ? 150 ng/mLOpiates: ? 300 ng/mLCannabinoids: ?50 ng/mL The results are to be used only for medical (i.e., treatment) purposes. Unconfirmed screening results must not be used for non-medical purposes (e.g., employment testing, legal testing). Lab Interpretation (test Abnormal code = 99669-8) [facility] CampusURINALYSIS2020-12-17 02:45:00 Test Item Value Reference Range Interpretation Comments APPEARANCE (test code = Clear Clear 4813278933) COLOR (test code = Yellow Yellow 3987475246) PH (test code = 4.8-8.0 8320806251) SP GRAVITY (test code = 1.003-1.030 4075944166) GLU U QUAL (test code = Normal Normal 2381032825) BLOOD (test code = Negative Negative 9872655834) KETONES (test code = Negative Negative 1148148826) PROTEIN (test code = Negative Negative 2887-8) UROBILIN (test code = Normal Normal 0734413016) BILIRUBIN (test code = Negative Negative 3073414302) NITRITE (test code = Negative Negative 3616176977) LEUK MANPREET (test code = 25/uL Negative A 7331574734) RBC/HPF (test code = See_Comment [Autom ated message] 4059883800) The system [employer] generated this result transmitted ref erence range: 0 - 3 HP F. The reference range was not used to int erpret this result as normal/abnormal . WBC/HPF (test code = See_Comment [Autom ated message] 1358001826) The system [employer] generated this result transmitted ref erence range: 0 - 5 HP F. The reference range was not used to int erpret this result as normal/abnormal . BACTERIA (test code = Few Negative A 2134449268) MUCOUS (test code = Slight Negative LPF A 8567706500) SQ EPITH (test code = See_Comment H [Auto mated message] 3450489575) The system [employer] generated this result transmitted ref erence range: <=2 HPF. The reference range was not used to int erpret this result as normal/abnormal . Lab Interpretation (test Abnormal code = 02475-6) [facility] CampusPREGNANCY TEST, [id number] 02:39:00 Test Item Value Reference Range Interpretation Comments PREG URINE (test code Negative = 9142913382) DENNY (test code = DENNY) Less than 20 IU/L. ?If low titer or ectopic is suspected, resubmit specimen in 48-72 hours. [facility] CampusSALICYLATE2020-12-17 02:26:00 Test Item Value Reference Range Interpretation Comments SALICYLATE (test code <10 mg/L = 3412042352) DENNY (test code = DENNY) Therapeutic Range: ? Analgesic and Antipyretic Use ? 20-100 mg/L ? ? Anti-Inflammatory Use ? 100-250 mg/L Toxic Range: ? Greater than 300 mg/L [facility] CampusETHANOL2020-12-17 02:26:00 Test Item Value Reference Range Interpretation Comments ALCOHOL (test code = <10 mg/dL 3734573036) DENNY (test code = Toxic Greater than or DENNY) equal to 80 mg/dL. NOTE: Whole blood values are approximately 10% to 15% lower than serum and plasma. [facility] CampusACETAMINOPHEN2020-12-17 02:24:00 Test Item Value Reference Range Interpretation Comments ACETAMINOP (test code = <10.0 10-30 L 7565795855) DENNY (test code = DENNY) Toxic: Greater than 200 ug/mL @ 4 hour post ingestion or greater than 50 ug/mL @ 12 hour post ingestion Lab Interpretation (test Abnormal code = 32105-0) [facility] CampusCOMP. METABOLIC PANEL (73631)2020-05-11 02:22:00 Test Item Value Reference Range Interpretation Comments NA (test code = 140 mmol/L 135-145 7826168981) K (test code = 3.5 mmol/L 3.5-5 4232804770) CL (test code = 106 mmol/L 98-108 2525646979) CO2 TOTAL (test code = 29 mmol/L 23-31 1908120297) AGAP (test code = 2-16 9272812414) BUN (test code = 15 mg/dL 7-23 2404285400) GLUCOSE (test code = 136 mg/dL 70-110 H 7158228624) CREATININE (test code = 0.65 mg/dL 0.5-1.04 5464559687) TOTAL BILI (test code = 0.3 mg/dL 0.1-1.0 3221082994) CALCIUM (test code = 9.4 mg/dL 8.6-10.6 3171922697) T PROTEIN (test code = 6.2 g/dL 6.3-8.2 L 4415263399) ALBUMIN (test code = 3.6 g/dL 3.5-5 5937913745) ALK PHOS (test code = 67 U/L 34-122 5425580051) ALTv (test code = 18 U/L 5-35 1742-6) AST(SGOT) (test code = 22 U/L 13-40 0879290866) eGFR Calculation mL/min/1.73m2 (Non-) (test code = 8384663426) eGFR Calculation mL/min/1.73m2 () (test code = 3710786015) DENNY (test code = DENNY) Association of Glomerular Filtration Rate (GFR) and Staging of Kidney Disease* + --+ --+ ------+| GFR (mL/min/1.73 m2) ?| With Kidney Damage ?| ?Without Kidney Damage+ --------+ --------+ +| ?>90 ?| ?Stage one ?| ? Normal ?+ ---+ ---+ -------+| ?60-89 ?| ?Stage two ?| ? Decreased GFR ? + --+ --+ ------+| ?30-59 ?| ?Stage three ?| ? Stage three ? + --+ --+ ------+| ?15-29 ?| ?Stage four ? | ? Stage four ?+ ---+ ---+ -------+| ?<15 (or dialysis) ? ?| ?Stage five ? | ? Stage five ?+ ---+ ---+ -------+ *Each stage assumes the associated GFR level has been in effect for at least three months. ?Stages 1 to 5, with or without kidney disease, indicate chronic kidney disease. Notes: Determination of stages one and two (with eGFR >59mL/min/1.73 m2) requires estimation of kidney damage for at least three months as defined by structural or functional abnormalities of the kidney, manifested by either:Pathological abnormalities or Markers of kidney damage (including abnormalities in the composition of the blood or urine or abnormalities in imaging tests). Lab Interpretation Abnormal (test code = 77864-9) [facility] CampusCREATINE [id number] 02:22:00 Test Item Value Reference Range Interpretation Comments CK (test code = 7556712147) 52 U/L 33-194 Lab Interpretation (test code = Normal 93308-7) [facility] CampusCB WITH [id number] 01:56:00 Test Item Value Reference Range Interpretation Comments WBC (test code = See_Comment [Automated 7181-2) message] The sy stem which generated this result transmitted reference range : 4.30 - 11.10 10*3/?L. The reference range was not used to interpret this result as normal/abnormal . RBC (test code = See_Comment [Automated 789-8) message] The sy stem which generated this result transmitted reference range : 3.93 - 5.25 10*6/?L. The reference range was not used to interpret this result as normal/abnormal . HGB (test code = 13.7 g/dL 11.6-15 718-7) HCT (test code = 41.0 % 35.7-45.2 4544-3) MCV (test code = 88.0 fL 80.6-95.5 787-2) MCH (test code = 29.4 pg 25.9-32.8 785-6) MCHC (test code = 33.4 g/dL 31.6-35.1 786-4) RDW-SD (test code = 41.7 fL 39-49.9 23802-6) RDW-CV (test code = 12.8 % 12-15.5 788-0) PLT (test code = See_Comment [Automated 777-3) message] The sy stem which generated this result transmitted reference range : 166 - 358 10*3/ ?L. The reference r pako was not used to interpret this result as normal/abnormal . MPV (test code = 9.2 fL 9.5-12.9 L 02702-3) NRBC/100 WBC (test See_Comment [Automat ed code = 4210759440) message] The system which generated this result transmitted reference range : 0.0 - 10.0 /100 WBCs. The refer ence range was not u sed to interpret th is result as normal/abnormal . NRBC x10^3 (test code <0.01 See_Comment [Auto mated = 9738567720) message] The s ystem which generated this result transmitted reference range : 10*3/?L. The reference range was not used to interpret this result as normal/abnormal . GRAN MAT (NEUT) % 57.6 % (test code = 770-8) IMM GRAN % (test code 0.40 % = 9043544749) LYMPH % (test code = 33.3 % 736-9) MONO % (test code = 6.2 % 5905-5) EOS % (test code = 2.0 % 713-8) BASO % (test code = 0.5 % 706-2) GRAN MAT x10^3(ANC) 4.27 10*3/uL 1.88-7.09 (test code = 9996280868) IMM GRAN x10^3 (test 0.03 10*3/uL 0-0.06 code = 0876750168) LYMPH x10^3 (test code 2.47 10*3/uL 1.32-3.29 = 731-0) MONO x10^3 (test code 0.46 10*3/uL 0.33-0.92 = 742-7) EOS x10^3 (test code = 0.15 10*3/uL 0.03-0.39 711-2) BASO x10^3 (test code 0.04 10*3/uL 0.01-0.07 = 704-7) Lab Interpretation Abnormal (test code = 58582-0) [facility] CampusACETAMINOPHEN2020-10-14 20:57:00 Test Item Value Reference Range Interpretation Comments ACETAMINOP (test code = <10.0 10-30 L 5552891913) DENNY (test code = DENNY) Toxic: Greater than 200 ug/mL @ 4 hour post ingestion or greater than 50 ug/mL @ 12 hour post ingestion Lab Interpretation (test Abnormal code = 92533-3) [facility] CampusSALICYLATE2020-10-14 20:57:00 Test Item Value Reference Range Interpretation Comments SALICYLATE (test code <10 mg/L = 3385617183) DENNY (test code = DENNY) Therapeutic Range: ? Analgesic and Antipyretic Use ? 20-100 mg/L ? ? Anti-Inflammatory Use ? 100-250 mg/L Toxic Range: ? Greater than 300 mg/L [facility] CampusDRUG PANEL 2 [id number] 20:02:00 Test Item Value Reference Range Interpretation Comments AMPHET (test code = Presumptive Positive Negative A 7528003051) ELAINA U (test code = Negative Negative 0181006578) BENZO U (test code = Negative Negative 4167937970) Cocaine Metabolite (test Negative Negative code = 0578581613) METHADONE (test code = Negative Negative 0414572815) OPIATES (test code = Negative Negative 2179163477) PCP (test code = Negative Negative 4386762902) THC (test code = Negative Negative 2494358120) DENNY (test code = DENNY) Urine Drug Cutoff Ranges Cocaine: ? 150 ng/mLBenzodiazepines: ? ? 200 ng/mLMethadone: ? 300 ng/mLAmphetamine: ? 1,000 ng/mLOpiates: ? 300 ng/mLCannabinoids: ?50 ng/mLPhencyclidine: ? ? ? 25 ng/mLBarbiturates: ?200 ng/mL The results are to be used only for medical (i.e., treatment) purposes. Unconfirmed screening results must not be used for non-medical purposes (e.g., employment testing, legal testing). Lab Interpretation (test Abnormal code = 73416-9) [facility] CampusUrinalysis2020-10-14 18:27:00 Test Item Value Reference Range Interpretation Comments APPEARANCE (test code = Clear Clear 9012183171) COLOR (test code = Yellow Yellow 0687675715) PH (test code = 4.8-8.0 9561007457) SP GRAVITY (test code = 1.003-1.030 5786199006) GLU U QUAL (test code = Normal Normal 8705839289) BLOOD (test code = Negative Negative 2562439001) KETONES (test code = Negative Negative 7145492934) PROTEIN (test code = 30 mg/dL Negative A 2887-8) UROBILIN (test code = Normal Normal 2789942703) BILIRUBIN (test code = Negative Negative 8869920007) NITRITE (test code = Negative Negative 5098924401) LEUK MANPREET (test code = Negative Negative 7587292205) RBC/HPF (test code = See_Comment H [Autom ated message] 1612419697) The system [employer] generated this result transmitted ref erence range: 0 - 3 HP F. The reference range was not used to int erpret this result as normal/abnormal . WBC/HPF (test code = See_Comment H [Autom ated message] 9102030758) The system [employer] generated this result transmitted ref erence range: 0 - 5 HP F. The reference range was not used to int erpret this result as normal/abnormal . BACTERIA (test code = Negative Negative 9767708368) MUCOUS (test code = Slight Negative LPF A 5690876084) SQ EPITH (test code = See_Comment H [Auto mated message] 0770946712) The system [employer] generated this result transmitted ref erence range: <=2 HPF. The reference range was not used to int erpret this result as normal/abnormal . Lab Interpretation (test Abnormal code = 89119-3) [facility] CampusCT HEAD WO [id number] 14:54:42 No acute intracranial abnormality. Preliminary Report Dictated by Resident: Umair Meyer I, Cassidy Solis MD., have reviewed this study and agree with theabove report.EXAM: CT HEAD WO CONTRAST HISTORY: Altered mental status (AMS), unclear cause AMS COMPARISON: 11/07/2014 TECHNIQUE: Noncontrast CT of the brain was obtained with coronal andsagittal reconstructions. DOSE: 764.90 mGy*cm FINDINGS: The ventricles and cerebral sulci are normal in caliber and configuration.No hydrocephalus, midline shift or pathological extra-axial fluidcollection is present. The basal cisterns are unremarkable. There is no acute intracranial hemorrhage or significant mass effect.Patchy hypoattenuation in the biconvexity deep white matter is nonspecificbut most likely represents ischemic small vessel disease. The marin-whitematter differentiation is preserved. The mastoid air cells and paranasal air sinuses are clear. The calvariumand central skull base are unremarkable. [facility], Radiant Results Inft User - 03/08/2020 9:55 AM CDTEXAM: CT HEAD WO CONTRASTHISTORY: Altered mental status (AMS), unclear cause AMSCOMPARISON: 11/07/2014TECHNIQUE: Noncontrast CT of the brain was obtained with coronal andsagittal reconstructions.DOSE: 764.90 mGy*cmFINDINGS:The ventricles and cerebral sulci are normal in caliber and configuration.No hydrocephalus, midline shift or pathological extra-axial fluidcollection is present. The basal cisterns are unremarkable.There is no acute intracranial hemorrhage or significant mass effect.Patchy hypoattenuation in the biconvexity deep white matter is nonspecificbut most likely represents ischemicsmall vessel disease. The marin-whitematter differentiation is preserved.The mastoid air cells and par anasal air sinuses are clear. The calvariumand central skull base are unremarkable.IMPRESSIONNo acute intracranial abnormality.Preliminary Report Dictated by Resident: Umair Brown, Cassidy Solis MD., have reviewed this study and agree with theabove report.[facility] CampusTROPOMARICRUZN [id number] 13:21:00 Test Item Value Reference Range Interpretation Comments TROPONIN I (test 0.004 ng/mL See_Comment [Automated code = 9454497860) message] The system which generated this result transmitted reference range : <=0.034. The reference range was not used to interpret this result as normal/abnormal . DENNY (test code = Equal or Less than DENNY) 0.034 ng/ml---Normal ?Note: Cardiac troponin begins to rise 3-4 hours after the onset of ischemia. Repeat in 4-6 hours if the sample was drawn within 3-4 hours of the onset of the symptom and found normal. Between 0.035 and 0.120 ng/mL--- Borderline. Questionable myocardial injury or necrosis ? ?Note: Serial measurement may be necessary to confirm or exclude the diagnosis of myocardial injury or necrosis; Clinical correlation (symptoms, EKGs, imaging studies, and others) required; Repeat in 4-6 hours if clinically indicated. ? Equal or Higher than 0.121 ng/mL---Abnormal. Myocardial Injury or Necrosis Likely ? Biotin has been reported to cause a negative bias, interpret results relative to patient's use of biotin. ? Lab Interpretation Normal (test code = 94049-2) [facility] CampusETHANOL2020-10-14 13:16:00 Test Item Value Reference Range Interpretation Comments ALCOHOL (test code = <10 mg/dL 7027137980) DENNY (test code = Toxic Greater than or DENNY) equal to 80 mg/dL. NOTE: Whole blood values are approximately 10% to 15% lower than serum and plasma. [facility] CampusCOMP. METABOLIC PANEL ([id number])2020-03-08 13:13:00 Test Item Value Reference Range Interpretation Comments NA (test code = 143 mmol/L 135-145 3958666425) K (test code = 3.9 mmol/L 3.5-5 2915950185) CL (test code = 106 mmol/L 98-108 3858623972) CO2 TOTAL (test code = 33 mmol/L 23-31 H 8860560984) AGAP (test code = 2-16 1862611985) BUN (test code = 12 mg/dL 7-23 8773915277) GLUCOSE (test code = 101 mg/dL 70-110 2004412083) CREATININE (test code = 0.52 mg/dL 0.5-1.04 8824393325) TOTAL BILI (test code = 0.5 mg/dL 0.1-1.6 3579232915) CALCIUM (test code = 9.7 mg/dL 8.6-10.6 0430787794) T PROTEIN (test code = 6.4 g/dL 6.3-8.2 6464438717) ALBUMIN (test code = 3.7 g/dL 3.5-5 4171968210) ALK PHOS (test code = 67 U/L 34-122 8507395296) ALTv (test code = 12 U/L 5-35 1742-6) AST(SGOT) (test code = 17 U/L 13-40 0674910062) eGFR Calculation mL/min/1.73m2 (Non-) (test code = 6681230015) eGFR Calculation mL/min/1.73m2 () (test code = 1445820467) DENNY (test code = DENNY) Association of Glomerular Filtration Rate (GFR) and Staging of Kidney Disease* + --+ --+ ------+| GFR (mL/min/1.73 m2) ?| With Kidney Damage ?| ?Without Kidney Damage+ --------+ --------+ +| ?>90 ?| ?Stage one ?| ? Normal ?+ ---+ ---+ -------+| ?60-89 ?| ?Stage two ?| ? Decreased GFR ? + --+ --+ ------+| ?30-59 ?| ?Stage three ?| ? Stage three ? + --+ --+ ------+| ?15-29 ?| ?Stage four ? | ? Stage four ?+ ---+ ---+ -------+| ?<15 (or dialysis) ? ?| ?Stage five ? | ? Stage five ?+ ---+ ---+ -------+ *Each stage assumes the associated GFR level has been in effect for at least three months. ?Stages 1 to 5, with or without kidney disease, indicate chronic kidney disease. Notes: Determination of stages one and two (with eGFR >59mL/min/1.73 m2) requires estimation of kidney damage for at least three months as defined by structural or functional abnormalities of the kidney, manifested by either:Pathological abnormalities or Markers of kidney damage (including abnormalities in the composition of the blood or urine or abnormalities in imaging tests). Lab Interpretation Abnormal (test code = 01961-4) [facility] CampusLIPASE2020-10-14 13:13:00 Test Item Value Reference Range Interpretation Comments LIPASE (test code = 9649588287) 37 U/L 0-220 Lab Interpretation (test code = Normal 91621-6) [facility] CampusCB with [id number] 12:50:00 Test Item Value Reference Range Interpretation Comments WBC (test code = See_Comment [Automated 7490-2) message] The sy stem which generated this result transmitted reference range : 4.30 - 11.10 10*3/?L. The reference range was not used to interpret this result as normal/abnormal . RBC (test code = See_Comment [Automated 599-8) message] The sy stem which generated this result transmitted reference range : 3.93 - 5.25 10*6/?L. The reference range was not used to interpret this result as normal/abnormal . HGB (test code = 13.1 g/dL 11.6-15 718-7) HCT (test code = 40.4 % 35.7-45.2 4544-3) MCV (test code = 91.6 fL 80.6-95.5 787-2) MCH (test code = 29.7 pg 25.9-32.8 785-6) MCHC (test code = 32.4 g/dL 31.6-35.1 786-4) RDW-SD (test code = 45.8 fL 39-49.9 03475-8) RDW-CV (test code = 13.4 % 12-15.5 788-0) PLT (test code = See_Comment [Automated 777-3) message] The sy stem which generated this result transmitted reference range : 166 - 358 10*3/ ?L. The reference r pako was not used to interpret this result as normal/abnormal . MPV (test code = 9.3 fL 9.5-12.9 L 80465-4) NRBC/100 WBC (test See_Comment [Automat ed code = 4491774339) message] The system which generated this result transmitted reference range : 0.0 - 10.0 /100 WBCs. The refer ence range was not u sed to interpret th is result as normal/abnormal . NRBC x10^3 (test code <0.01 See_Comment [Auto mated = 5876819552) message] The s ystem which generated this result transmitted reference range : 10*3/?L. The reference range was not used to interpret this result as normal/abnormal . GRAN MAT (NEUT) % 61.7 % (test code = 770-8) IMM GRAN % (test code 0.20 % = 2140646047) LYMPH % (test code = 27.3 % 736-9) MONO % (test code = 8.7 % 5905-5) EOS % (test code = 1.5 % 713-8) BASO % (test code = 0.6 % 706-2) GRAN MAT x10^3(ANC) 5.24 10*3/uL 1.88-7.09 (test code = 5979143917) IMM GRAN x10^3 (test <0.03 0-0.06 code = 0123495485) LYMPH x10^3 (test code 2.32 10*3/uL 1.32-3.29 = 731-0) MONO x10^3 (test code 0.74 10*3/uL 0.33-0.92 = 742-7) EOS x10^3 (test code = 0.13 10*3/uL 0.03-0.39 711-2) BASO x10^3 (test code 0.05 10*3/uL 0.01-0.07 = 704-7) Lab Interpretation Abnormal (test code = 19937-0) [facility] CampusDRUG SCREEN ER (URINE)2019-07-29 04:28:00 Test Item Value Reference Range Interpretation Comments AMPHET (test code = Presumptive Positive Negative A 1917282294) Cocaine Metabolite (test Negative Negative code = 0827786132) OPIATES (test code = Negative Negative 3917039073) THC (test code = Negative Negative 1038042564) DENNY (test code = DENNY) Urine Drug Cutoff Ranges Amphetamine: ? 1,000 ng/mLCocaine: ? 150 ng/mLOpiates: ? 300 ng/mLCannabinoids: ?50 ng/mL The results are to be used only for medical (i.e., treatment) purposes. Unconfirmed screening results must not be used for non-medical purposes (e.g., employment testing, legal testing). Lab Interpretation (test Abnormal code = 71743-2) [facility] WITH [id number] 03:18:00 Test Item Value Reference Range Interpretation Comments WBC (test code = See_Comment [Automated 6383-2) message] The sy stem which generated this result transmitted reference range : 4.30 - 11.10 10*3/?L. The reference range was not used to interpret this result as normal/abnormal . RBC (test code = See_Comment [Automated 913-8) message] The sy stem which generated this result transmitted reference range : 3.93 - 5.25 10*6/?L. The reference range was not used to interpret this result as normal/abnormal . HGB (test code = 13.1 g/dL 11.6-15 718-7) HCT (test code = 40.0 % 35.7-45.2 4544-3) MCV (test code = 91.1 fL 80.6-95.5 787-2) MCH (test code = 29.8 pg 25.9-32.8 785-6) MCHC (test code = 32.8 g/dL 31.6-35.1 786-4) RDW-SD (test code = 44.4 fL 39-49.9 94995-8) RDW-CV (test code = 13.3 % 12-15.5 788-0) PLT (test code = See_Comment [Automated 387-3) message] The sy stem which generated this result transmitted reference range : 166 - 358 10*3/ ?L. The reference r pako was not used to interpret this result as normal/abnormal . MPV (test code = 9.4 fL 9.5-12.9 L 09091-9) NRBC/100 WBC (test See_Comment [Automat ed code = 7639062911) message] The system which generated this result transmitted reference range : 0.0 - 10.0 /100 WBCs. The refer ence range was not u sed to interpret th is result as normal/abnormal . NRBC x10^3 (test code <0.01 See_Comment [Auto mated = 4032246287) message] The s ystem which generated this result transmitted reference range : 10*3/?L. The reference range was not used to interpret this result as normal/abnormal . GRAN MAT (NEUT) % 51.4 % (test code = 770-8) IMM GRAN % (test code 0.30 % = 7768969010) LYMPH % (test code = 39.1 % 736-9) MONO % (test code = 6.2 % 5905-5) EOS % (test code = 2.4 % 713-8) BASO % (test code = 0.6 % 706-2) GRAN MAT x10^3(ANC) 5.27 10*3/uL 1.88-7.09 (test code = 1312911443) IMM GRAN x10^3 (test 0.03 10*3/uL 0-0.06 code = 9997481612) LYMPH x10^3 (test code 4.02 10*3/uL 1.32-3.29 H = 731-0) MONO x10^3 (test code 0.64 10*3/uL 0.33-0.92 = 742-7) EOS x10^3 (test code = 0.25 10*3/uL 0.03-0.39 711-2) BASO x10^3 (test code 0.06 10*3/uL 0.01-0.07 = 704-7) Lab Interpretation Abnormal (test code = 57241-6) [facility] CampusACETAMINOPHEN2020-03-05 03:04:00 Test Item Value Reference Range Interpretation Comments ACETAMINOP (test code = <10.0 10-30 L 5981051761) DENNY (test code = DENNY) Toxic: Greater than 200 ug/mL @ 4 hour post ingestion or greater than 50 ug/mL @ 12 hour post ingestion Lab Interpretation (test Abnormal code = 13376-6) [facility] CampusSALICYLATE2020-03-05 03:04:00 Test Item Value Reference Range Interpretation Comments SALICYLATE (test code <10 mg/L = 9554693856) DENNY (test code = DENNY) Therapeutic Range: ? Analgesic and Antipyretic Use ? 20-100 mg/L ? ? Anti-Inflammatory Use ? 100-250 mg/L Toxic Range: ? Greater than 300 mg/L [facility] CampusETHANOL2020-03-05 03:04:00 Test Item Value Reference Range Interpretation Comments ALCOHOL (test code = <10 mg/dL 7810661112) DENNY (test code = Toxic Greater than or DENNY) equal to 80 mg/dL. NOTE: Whole blood values are approximately 10% to 15% lower than serum and plasma. [facility] CampusCOMP. METABOLIC PANEL (12183)2019-07-29 03:03:00 Test Item Value Reference Range Interpretation Comments NA (test code = 140 mmol/L 135-145 4979324530) K (test code = 3.7 mmol/L 3.5-5 2517887897) CL (test code = 106 mmol/L 98-108 5482329436) CO2 TOTAL (test code = 27 mmol/L 23-31 0286576448) AGAP (test code = 2-16 2464020894) BUN (test code = 14 mg/dL 7-23 1687636635) GLUCOSE (test code = 99 mg/dL 70-110 3815730901) CREATININE (test code = 0.44 mg/dL 0.5-1.04 L 6495569755) TOTAL BILI (test code = 0.2 mg/dL 0.1-1.3 3402849025) CALCIUM (test code = 9.3 mg/dL 8.6-10.6 9483209735) T PROTEIN (test code = 5.9 g/dL 6.3-8.2 L 4809514628) ALBUMIN (test code = 3.4 g/dL 3.5-5 L 8128406339) ALK PHOS (test code = 55 U/L 34-122 4050568205) ALTv (test code = 11 U/L 5-35 1742-6) AST(SGOT) (test code = 14 U/L 13-40 5340886562) eGFR Calculation mL/min/1.73m2 (Non-) (test code = 9463442544) eGFR Calculation mL/min/1.73m2 () (test code = 1713975469) DENNY (test code = DENNY) Association of Glomerular Filtration Rate (GFR) and Staging of Kidney Disease* + --+ --+ ------+| GFR (mL/min/1.73 m2) ?| With Kidney Damage ?| ?Without Kidney Damage+ --------+ --------+ +| ?>90 ?| ?Stage one ?| ? Normal ?+ ---+ ---+ -------+| ?60-89 ?| ?Stage two ?| ? Decreased GFR ? + --+ --+ ------+| ?30-59 ?| ?Stage three ?| ? Stage three ? + --+ --+ ------+| ?15-29 ?| ?Stage four ? | ? Stage four ?+ ---+ ---+ -------+| ?<15 (or dialysis) ? ?| ?Stage five ? | ? Stage five ?+ ---+ ---+ -------+ *Each stage assumes the associated GFR level has been in effect for at least three months. ?Stages 1 to 5, with or without kidney disease, indicate chronic kidney disease. Notes: Determination of stages one and two (with eGFR >59mL/min/1.73 m2) requires estimation of kidney damage for at least three months as defined by structural or functional abnormalities of the kidney, manifested by either:Pathological abnormalities or Markers of kidney damage (including abnormalities in the composition of the blood or urine or abnormalities in imaging tests). Lab Interpretation Abnormal (test code = 47779-7) [facility] [id number] 03:01:00 Test Item Value Reference Range Interpretation Comments APPEARANCE (test code = Cloudy Clear A 5998865370) COLOR (test code = Yellow Yellow 9309986210) PH (test code = 4.8-8.0 6671744173) SP GRAVITY (test code = 1.003-1.030 8963765737) GLU U QUAL (test code = 50 mg/dL Normal A 3805110692) BLOOD (test code = Negative Negative 4439329663) KETONES (test code = 5 mg/dL Negative A 4335606977) PROTEIN (test code = Negative Negative 2887-8) UROBILIN (test code = 4.0 mg/dL Normal A 4820046236) BILIRUBIN (test code = Negative Negative 4244041791) NITRITE (test code = Negative Negative 4807579472) LEUK MANPREET (test code = Negative Negative 5412319414) RBC/HPF (test code = See_Comment H [Autom ated message] 2162692800) The system [employer] generated this result transmit jd reference range : 0 - 3 HPF. The refe rence range was not u sed to interpret th is result as normal/abnormal . WBC/HPF (test code = See_Comment [Autom ated message] 0057142199) The system [employer] generated this result transmit jd reference range : 0 - 5 HPF. The refe rence range was not u sed to interpret th is result as normal/abnormal . BACTERIA (test code = Few Negative A 8151947607) MUCOUS (test code = Slight Negative LPF A 4420689364) SQ EPITH (test code = See_Comment H [Auto mated message] 3631423988) The system [employer] generated this result transmit jd reference range : <=2 HPF. The refere nce range was not u sed to interpret th is result as normal/abnormal . CA OXALATE (test code = See_Comment H [Au tomated message] 6557582136) The system [employer] generated this result transmit jd reference range : <=1 HPF. The refere nce range was not u sed to interpret th is result as normal/abnormal . Lab Interpretation (test Abnormal code = 86285-5) [facility] CampusDrug Screen [id number] 22:00:00 Test Item Value Reference Range Interpretation Comments AMPHET (test code = Presumptive Positive Negative A 2091660449) Cocaine Metabolite (test Negative Negative code = 1290217504) OPIATES (test code = Negative Negative 9291114805) THC (test code = Negative Negative 0648728629) DENNY (test code = DENNY) Urine Drug Cutoff RangesAmphetamine:? 1,000 ng/mLCocaine:? 150 ng/mLOpiates:? 300 ng/mLCannabinoids:?50 ng/mLThe results are to be used only for medical (i.e., treatment) purposes. Unconfirmed screening results must not be used for non-medical purposes (e.g., employment testing, legal testing). Lab Interpretation (test Abnormal code = 17403-2) [facility] CampusTroponin [id number] 21:17:00 Test Item Value Reference Range Interpretation Comments TROPONIN I (test 0.001 ng/mL See_Comment [Automated code = 1345762328) message] The system which generated this result transmitted reference range : <=0.034. The reference range was not used to interpret this result as normal/abnormal . DENNY (test code = Equal or Less than DENNY) 0.034 ng/ml---Normal?Not e: Cardiac troponin begins to rise 3-4 hours after the onset of ischemia. Repeat in 4-6 hours if the sample was drawn within 3-4 hours of the onset of the symptom and found normal. Between 0.035 and 0.120 ng/mL--- Borderline. Questionable myocardial injury or necrosis?Note: Serial measurement may be necessary to confirm or exclude the diagnosis of myocardial injury or necrosis; Clinical correlation (symptoms, EKGs, imaging studies, and others) required; Repeat in 4-6 hours if clinically indicated.? Equal or Higher than 0.121 ng/mL---Abnormal. Myocardial Injury or Necrosis Likely? Biotin has been reported to cause a negative bias, interpret results relative to patient's use of biotin.? ? Lab Interpretation Normal (test code = 28595-0) [facility] CampusCB WITH [id number] 21:13:00 Test Item Value Reference Range Interpretation Comments WBC (test code = See_Comment [Automated 6390-2) message] The sy stem which generated this result transmitted reference range : 4.30 - 11.10 10*3/?L. The reference range was not used to interpret this result as normal/abnormal . RBC (test code = See_Comment [Automated 099-8) message] The sy stem which generated this result transmitted reference range : 3.93 - 5.25 10*6/?L. The reference range was not used to interpret this result as normal/abnormal . HGB (test code = 15.2 g/dL 11.6-15 H 718-7) HCT (test code = 45.4 % 35.7-45.2 H 4544-3) MCV (test code = 88.3 fL 80.6-95.5 787-2) MCH (test code = 29.6 pg 25.9-32.8 785-6) MCHC (test code = 33.5 g/dL 31.6-35.1 786-4) RDW-SD (test code = 41.8 fL 39-49.9 13372-9) RDW-CV (test code = 12.9 % 12-15.5 788-0) PLT (test code = See_Comment H [Automated 777-3) message] The sy stem which generated this result transmitted reference range : 166 - 358 10*3/ ?L. The reference r pako was not used to interpret this result as normal/abnormal . MPV (test code = 9.5 fL 9.5-12.9 86460-0) NRBC/100 WBC (test See_Comment [Automat ed code = 9026851242) message] The system which generated this result transmitted reference range : 0.0 - 10.0 /100 WBCs. The refer ence range was not u sed to interpret th is result as normal/abnormal . NRBC x10^3 (test code <0.01 See_Comment [Auto mated = 9859944162) message] The s ystem which generated this result transmitted reference range : 10*3/?L. The reference range was not used to interpret this result as normal/abnormal . GRAN MAT (NEUT) % 47.8 % (test code = 770-8) IMM GRAN % (test code 0.20 % = 5428323654) LYMPH % (test code = 42.3 % 736-9) MONO % (test code = 6.6 % 5905-5) EOS % (test code = 2.4 % 713-8) BASO % (test code = 0.7 % 706-2) GRAN MAT x10^3(ANC) 4.98 10*3/uL 1.88-7.09 (test code = 6471827622) IMM GRAN x10^3 (test <0.03 0-0.06 code = 0559241476) LYMPH x10^3 (test code 4.41 10*3/uL 1.32-3.29 H = 731-0) MONO x10^3 (test code 0.69 10*3/uL 0.33-0.92 = 742-7) EOS x10^3 (test code = 0.25 10*3/uL 0.03-0.39 711-2) BASO x10^3 (test code 0.07 10*3/uL 0.01-0.07 = 704-7) Lab Interpretation Abnormal (test code = 74019-7) [facility]. METABOLIC PANEL (50392)2019-01-31 21:09:00 Test Item Value Reference Range Interpretation Comments NA (test code = 140 mmol/L 135-145 8542780974) K (test code = 3.8 mmol/L 3.5-5 9654993577) CL (test code = 100 mmol/L 98-108 3648697854) CO2 TOTAL (test code = 31 mmol/L 23-31 2939453073) AGAP (test code = 2-16 4399854400) BUN (test code = 14 mg/dL 7-23 7213042549) GLUCOSE (test code = 119 mg/dL 70-110 H 2702928877) CREATININE (test code = 0.53 mg/dL 0.5-1.04 8218777503) TOTAL BILI (test code = 0.5 mg/dL 0.1-1.4 7973544001) CALCIUM (test code = 10.0 mg/dL 8.6-10.6 9598871932) T PROTEIN (test code = 8.0 g/dL 6.3-8.2 3696247653) ALBUMIN (test code = 4.7 g/dL 3.5-5 0781879423) ALK PHOS (test code = 54 U/L 34-122 5973583906) ALT(SGPT) (test code = 18 U/L 9-51 0211701805) AST(SGOT) (test code = 34 U/L 13-40 4190110994) eGFR Calculation mL/min/1.73m2 (Non-) (test code = 5223728164) eGFR Calculation mL/min/1.73m2 () (test code = 9576317003) DENNY (test code = DENNY) Association of Glomerular Filtration Rate (GFR) and Staging of Kidney Disease*+ + + +| GFR (mL/min/1.73 m2)?| With Kidney Damage?|?Without Kidney Damage+ --------+ --------+ +|?>90?|?S tage one?|? Normal?+ ---------+ ---------+ +|?60-89? |?Stage two??|? Decreased GFR? + --+ --+ ------+|?30-59?|?Stage three?|? Stage three? + --+ --+ ------+|?15-29?|?Stage four? |? Stage four?+ -------+ -------+ +|?<15 (or dialysis)?|?Stage five? |? Stage five?+ -------+ -------+ +*Each stage assumes the associated GFR level has been in effect for at least three months.?Stages 1 to 5, with or without kidney disease, indicate chronic kidney disease.Notes: Determination of stages one and two (with eGFR >59mL/min/1.73 m2) requires estimation of kidney damage for at least three months as defined by structural or functional abnormalities of the kidney, manifested by either:Pathological abnormalities or Markers of kidney damage (including abnormalities in the composition of the blood or urine or abnormalities in imaging tests). Lab Interpretation Abnormal (test code = 29118-5) [facility] CampusLipase [id number] 21:09:00 Test Item Value Reference Range Interpretation Comments LIPASE (test code = 3005759808) 77 U/L 0-220 Lab Interpretation (test code = Normal 86286-9) [facility] CampusUrinalysis2019-09-08 21:03:00 Test Item Value Reference Range Interpretation Comments APPEARANCE (test code = Clear Clear 7774218782) COLOR (test code = Yellow Yellow 8929849172) PH (test code = 4.8-8.0 2213909289) SP GRAVITY (test code = 1.003-1.030 6440711515) GLU U QUAL (test code = Normal Normal 1113062369) BLOOD (test code = Negative Negative 9807060481) KETONES (test code = Negative Negative 7470115055) PROTEIN (test code = Negative Negative 2887-8) UROBILIN (test code = Normal Normal 7467480534) BILIRUBIN (test code = Negative Negative 1428744896) NITRITE (test code = Negative Negative 2913285170) LEUK MANPREET (test code = Negative Negative 2801632626) RBC/HPF (test code = See_Comment [Autom ated message] 1416248508) The system [employer] generated this result transmitted ref erence range: 0 - 3 HP F. The reference range was not used to int erpret this result as normal/abnormal . WBC/HPF (test code = See_Comment [Autom ated message] 0758770343) The system [employer] generated this result transmitted ref erence range: 0 - 5 HP F. The reference range was not used to int erpret this result as normal/abnormal . BACTERIA (test code = Negative Negative 8039791050) SQ EPITH (test code = See_Comment [Auto mated message] 5131693125) The system [employer] Acquisition generated this result transmitted ref erence range: <=2 HPF. The reference range was not used to int erpret this result as normal/abnormal . Lab Interpretation (test Normal code = 95414-0) [facility], [id number] 20:47:00 Test Item Value Reference Range Interpretation Comments POCT PREG (test code = 1605) Negative On board controls acceptable with Present C Line (test code = 3574) POCT PREG LOT # (test code = 3575) [id number] POCT PREG TEST DATE (test 2020-01-24 code = 3576) Lab Interpretation (test code = Normal 00307-8) [facility], [id number] 05:19:00 Test Item Value Reference Range Interpretation Comments RPR (test code = RPR) Non-Reactive Non-Reactive N Thyroid Stimulating Hormone (TSH)2016-12-04 20:11:00 Test Item Value Reference Range Interpretation Comments TSH (test code = TSH) 1.80 mIU/mL 0.270-4.200 N Lipid [id number] 20:00:00 Test Item Value Reference Range Interpretation Comments Cholesterol (test 243 mg/dL 0-200 H code = CHOL) Triglycerides (test 177 mg/dL 9-200 N code = TRIG) HDL (test code = 44 mg/dL 50-60 L HDL) Chol/HDL (test code 5.5 Ratio 0.0-4.4 H = CHOLPHDL) LDL, Calculated 164 mg/dL 0-130 H (NOTE)RISK O F HEART (test code = LDLC) DISEASEPu blished by [place] Islander Heart AssociationAnal yte Optimal Boderli ne Increased RiskC HOL <200 200-239 >240TRI G <150 150-199 >200HDL Male: >60 <40HDL Fema le: >60 <50LDL <100 130 -159 >160LDL NEAR OP TIMAL IS 100-129 VLDL (test code = 35 mg/dL 5-40 N VLDL) LDL/HDL (test code = 4 LDLPHDL) [id number] 18:47:00 Test Item Value Reference Range Interpretation Comments Amphetamine (test Negative Negative N For diagno stic code = AMPH) purposes only, positive result s should always b e assessedin conjunctionwith the patient's medic al history,clinica l examination and otherfindings.T o fulfill legal requirements, a more specific altern ate chemical method must be used inorder to obtain a Confirmed brayden lytical result. GC/MS i s the preferred confi rmatory method. Barbiturates (test Negative Negative N code = ELAINA) Benzodiazepine (test Negative Negative N code = PHUONG) Cocaine (test code = Negative Negative N COCA) Methadone (test code Negative Negative N = MTHD) Opiates (test code = Negative Negative N OPIA) PCP (test code = PCP) Negative Negative N Propoxyphene (test Negative Negative N code = PROPOX) THC (test code = THC) Negative Negative N Alcohol, Urine (test <0.01 g/dL 0.00-0.01 N code = ETOHU) [id number] 18:47:00 Test Item Value Reference Range Interpretation Comments Amphetamine (test code Negative Negative N For d iagnostic purposes = AMPH) only, positive results should always b e assessedin conjunctionwith the patient's medic al history,clinica l examination and otherfindings.T o fulfill legal requirements, a more specific altern ate chemical method must be used inorder to obtain a Confirmed brayden lytical result. GC/MS i s the preferred confi rmatory method. Barbiturates (test Negative Negative N code = ELAINA) Benzodiazepine (test Negative Negative N code = PHUONG) Cocaine (test code = Negative Negative N COCA) Opiates (test code = Negative Negative N OPIA) PCP (test code = PCP) Negative Negative N THC (test code = THC) Negative Negative N Comprehensive Metabolic [id number] 17:46:00 Test Item Value Reference Range Interpretation Comments Sodium (test code = 138 mmol/L 135-145 N NA) Potassium (test 4.3 mmol/L 3.5-5.1 N code = K) Chloride (test code 102 mmol/L 98-105 N = CL) Carbon Dioxide 24 mmol/L 22-29 N (test code = CO2) Glucose (test code 89 mg/dL 70-115 N = GLU) Blood Urea Nitrogen 18 mg/dL 6-20 N (test code = BUN) Creatinine (test 0.6 mg/dL 0.5-0.9 N code = CREAT) Calcium (test code 10.1 mg/dL 8.3-10.5 N = CA) Prot Total (test 6.3 g/dL 6.4-8.3 L code = TP) Albumin (test code 3.9 g/dL 3.5-5.2 N = ALB) A/G Ratio (test 1.6 Ratio code = AGRATIO) Globulin (test code 2.4 2.9-3.1 L = GLOB) Bili Total (test 0.2 mg/dL 0.1-0.9 N code = TBIL) Alk Phos (test code 62 U/L 35-104 N = APHOS) AST (test code = 11 U/L 1-32 N AST) ALT (test code = 9 U/L 1-33 N ALT) BUN/Creatinine 30.0 Ratio (test code = BCRATIO) Anion Gap (test 12 mmol/L 7-16 N code = AGAP) Estimated GFR (test >60 eGFR (es timated code = GFR) mL/min/1.73m2 Glomerular Horacio tration Rate) is an est imated value,calculate d from the patient's s hiren creatinine usin g the MDRD equation.I t is NOT the patient 's actual GFR. The eGFR provides a more clinicallyusefu l measure of kidn ey disease than se rum creatinine alone.This calculation efrain es sex and race into account, if the informationis provided. If th e race is not provided , and the patient isAfrican-Ameri can, multiply by 1.2 12. If sex is not prov ided, and thepatient is female, multipl y by 0.742. Results for patients <18 ye ars ofage have not been validated by th e MDRD study and miki d be interpretedwith caution.eGFR Re sult Interpretation: eGFR > or = 60 is in t he Normal RangeeGF R < 60 may mean kidney diseaseeGFR < 1 5 may mean kidney failureRange s recommended by the National Kidney Foundation,http ://nkd ep.nih.gov [id number] 17:29:00 Test Item Value Reference Range Interpretation Comments Amphetamine (test code Negative Negative N For d iagnostic purposes = AMPH) only, positive results should always b e assessedin conjunctionwith the patient's medic al history,clinica l examination and otherfindings.T o fulfill legal requirements, a more specific altern ate chemical method must be used inorder to obtain a Confirmed brayden lytical result. GC/MS i s the preferred confi rmatory method. Barbiturates (test Negative Negative N code = ELAINA) Benzodiazepine (test Negative Negative N code = PHUONG) Cocaine (test code = Negative Negative N COCA) Methadone (test code = Negative Negative N MTHD) Opiates (test code = Negative Negative N OPIA) PCP (test code = PCP) Negative Negative N Propoxyphene (test Negative Negative N code = PROPOX) THC (test code = THC) Negative Negative N BHCG, Urine, [id number] 17:21:00 Test Item Value Reference Range Interpretation Comments Preg Qual [Ur] (test code = HUHCG) Negative Negative N CBC with [id number] 17:13:00 Test Item Value Reference Range Interpretation Comments WBC (test code = WBC) 10.2 K/cumm 4.4-10.5 N RBC (test code = RBC) 4.47 M/cumm 3.75-5.20 N Hemoglobin (test code = HGB) 13.1 gm/dL 12.2-14.8 N Hematocrit (test code = HCT) 39.1 % 36.5-44.4 N MCV (test code = MCV) 87.5 fL 80-100 N MCH (test code = MCH) 29.2 pg 27.0-32.5 N MCHC (test code = MCHC) 33.4 g/dL 32.0-37.5 N RDW (test code = RDW) 14.9 % 11.5-14.5 H Platelet Count (test code = 276 K/cumm 140-440 N PLTCT) MPV (test code = MPV) 8.4 fL Diff Method (test code = DIFFM) Auto Neutrophil (test code = NEUT) 55.2 % 36-70 N Lymphocyte (test code = LYMPH) 38.3 % 12-44 N Monocyte (test code = MONO) 4.4 % 0-11 N Eosinophil (test code = EOS) 1.6 % 0-7 N Basophil (test code = BASO) 0.4 % 0-2 N Neutro Abs (test code = ANEUT) 5.6 K/cumm 1.6-7.4 N Lymph Abs (test code = ALYMPH) 3.9 K/cumm 0.5-4.6 N [place] Abs (test code = AMONO) 0.5 K/cumm 0.0-1.2 N Eos Abs (test code = AEOS) 0.16 K/cumm 0.00-0.74 N Baso Abs (test code = ABASO) 0.0 K/cumm 0.00-0.21 N Urinalysis [id number] 17:10:00 Test Item Value Reference Range Interpretation Comments Color (test code = COLOR) Yellow Yellow,Straw,Pl N yellow Clarity (test code = Clear Clear N CLAR) Specific [place] (test 1.021 1.001-1.035 N code = SPGR) pH (test code = PH) 6.5 5.0-9.0 N Ketone (test code = KET) Negative mg/dL Negative N Glucose (test code = Negative mg/dL Negative N GLUCUR) Protein (test code = Negative mg/dL Negative N PROT) Bilirubin (test code = Negative mg/dL Negative N BILI) Occult Blood (test code = Negative Negative N UDOB) Urobilinogen (test code = 0.2 mg/dL 0.2-1.0 N UROB) Nitrite (test code = NIT) Negative Negative N Leuk Esterase (test code Negative Negative N = LEUK) Micros Exam (test code = Not indicated MEXAM) CT ABDOMEN AND PELVIS WITH [id number] 12:15:18CT Abdomen and Pelvis With Contrast:Location: [id number]: Constipated r/o obstruction, hx of hernia.Co mparison: None.TECHNIQUE: 5 mm axial images were obtained to the abdomen and pelvis after theintravenous administration of 100 cc of Omnipaque 300 contrast. Sagittal andcoronal reformatted images were rendered. One or more of the following dosereduction techniques were used: Automated exposure control, adjustment of themA and/or kV according to patient size, and/or utilization of iterativereconstruction technique.Findings:There is scarring or atelectasis in the lung bases. The lung bases areotherwise clear. There is no effusion.Multiple calcified granulomas are present in the spleen. The liver and spleenare otherwise unremarkable. The gallbladder, pancreas and adrenal glands arenormal. There is an18 mm cyst in the upper pole of the left kidney. Thekidneys are otherwise unremarkable except for a 1.6 mm nonobstructing calculusin the midpole of the right kidney.The appendix is normal. Diverticulosis is present in the colon. There is noevidence of diverticulitis. There are several mildly dilated loops of smallbowel in the left mid abdomen without discrete transition zone.A ventral abdominal wall periumbilical hernia is present with the hernia defectmeasuring 2.1 cm. Omental fat is present withinthe hernia sac. No bowel isidentified.Atherosclerotic changes are present in the aorta without evidence of aneurysm.The bladder, uterus and adnexal regions are unremarkable.There is spondylosis in the spine. No acute osseous abnormality is identified.IMPRESSION:1. Ventral periumbilical fat-containing hernia with a 2.1 cm abdominal walldefect. No bowel is identified within the hernia sac.2. Several mildly dilated loops of small bowel in the left mid abdomen withoutdiscrete transition zone.3. Constipation with diverticulosis. No evidence of diverticulitis.4. Left renal cyst. There is a 1.6 mm nonobstructing calculus in the midpole ofthe right kidney.AMYLASE AND [id number] 11:34:00 Test Item Value Reference Range Interpretation Comments AMYLASE (test code = 10A) 50 U/L 28-100 LIPASE (test code = 60A) 119 IU/L 73-393 COMPREHENSIVE METABOLIC [id number] 11:34:00 Test Item Value Reference Range Interpretation Comments GLUCOSE (test code = 06D) 154 mg/dL 75-100 H SODIUM (test code = 01A) 139 mmol/L 136-145 POTASSIUM (test code = 01B) 3.5 mmol/L 3.6-5.1 L CHLORIDE (test code = 04A) 105 mmol/L 98-107 CO2 (test code = 02A) 27 mmol/L 22-32 ANION GAP (test code = ANG) 10.5 mmol/L BUN (test code = 05D) 11 mg/dL 7-18 CREATININE (test code = 03E) 0.6 mg/dL 0.4-1.1 BUN/CREA R (test code = BCR) 20 12-20 CALCIUM (test code = 09D) 8.9 mg/dL 8.3-9.5 BILI TOTAL (test code = 11A) 0.3 mg/dL 0.2-1.0 PROTEIN (test code = 07D) 6.6 g/dL 6.4-8.2 ALBUMIN (test code = 08D) 2.9 g/dL 3.5-4.8 L GLOBULIN (test code = GLB) 3.7 g/dL 1.5-3.8 ALB/GLOB (test code = AGRR) 0.8 1.0-2.6 L ALK PHOS (test code = 35A) 62 IU/L 42-121 AST (test code = 30A) 14 IU/L <=42 ALT (test code = 31A) 20 IU/L <=78 SERUM [id number] 11:27:00 Test Item Value Reference Range Interpretation Comments PREG SRM (test code = PGS) NEGATIVE NEGATIVE CBC (INCLUDES AUTOMATED DIFFERENTIAL)2016-09-04 11:19:00 Test Item Value Reference Range Interpretation Comments WBC (test code = WBC) 7.1 10\\S\\3/uL 4.5-11.0 RBC (test code = RBC) 4.04 10\\S\\6/uL 4.20-5.60 L HGB (test code = HBG) 12.0 g/dL 12.0-15.5 HCT (test code = HCT) 35.4 % 35.0-44.0 MCV (test code = MCV) 87.6 fL 81.0-99.0 MCH (test code = MCH) 29.7 pg 27.0-31.0 MCHC (test code = MCHC) 33.9 g/dL 32.0-36.0 RDW (test code = RDW) 13.2 % 11.5-14.5 PLT (test code = PLT) 298 10\\S\\3/uL 130-400 MPV (test code = MPV) 9.5 fL 9.4-12.4 NEUTROP # (test code = NE#) 4.0 10\\S\\3/uL 1.6-8.0 LYMPH # (test code = LY#) 2.4 10\\S\\3/uL 1.1-3.5 MONOCYTE # (test code = MO#) 0.4 10\\S\\3/uL 0.0-1.1 EOSINOPH # (test code = EO#) 0.2 10\\S\\3/uL 0.0-0.7 BASOPHIL # (test code = BA#) 0.1 10\\S\\3/uL 0.0-0.3 IG # (test code = IG#) 0.03 10\\S\\3/uL 0.00-0.06 NRBC # (test code = NRBC#) 0.00 10\\S\\3/uL 0.00-0.01 NEUTROPH % (test code = NE%) 56.8 % 35.0-73.0 LYMPH % (test code = LY%) 33.6 % 20.0-55.0 MONO % (test code = MO%) 6.1 % 2.5-10.0 EOSINOPH % (test code = EO%) 2.3 % 0.0-5.0 BASOPHIL % (test code = BA%) 0.8 % 0.0-2.0 IG % (test code = IG%) 0.4 % 0.0-0.8 NRBC% (test code = NRBC%) 0.0 % 0.0-0.2 MANDIFF (test code = MDIFF) NO NO RBC MORPH (test code = RBCMOR) NORMAL [id number] 11:13:00 Test Item Value Reference Range Interpretation Comments COLOR (test code = COLU) YELLOW YELLOW CLARITY (test code = CLA) CLEAR CLEAR GLUCOSE UR (test code = UA GLUCOSE) NEGATIVE NEGATIVE BILI UR (test code = BILE) NEGATIVE NEGATIVE KETONES UR (test code = SHANICE) NEGATIVE NEGATIVE SP GRAVITY (test code = SPGR) 1.009 1.005-1.030 PH UR (test code = PH) 7.0 4.5-8.0 PROTEIN UR (test code = PU) NEGATIVE NEGATIVE UROBIL UR (test code = UROQ) 0.2 EU/dL 0.2-1.0 NITRITE UR (test code = NITRITE) NEGATIVE NEGATIVE BLOOD UR (test code = UA BLOOD) NEGATIVE NEGATIVE LEUK ES UR (test code = LEUK) NEGATIVE NEGATIVE"
[2022-11-21 15:47] LABS: Absolute Lymphocytes (CBC) 3.5 K/uL (0.7-4.9); Hematocrit 42.7 % (36.0-45.0); Lymphocytes % 36.9 % (15.3-44.8); MCV 87.3 fL (80-100); MPV 7.4 fL (7.6-11.3); RBC Red Blood Cell Count 4.89 M/uL (3.86-4.86)
[2022-11-21 16:02] LABS: Specific Gravity 1.021 (1.005-1.030); Urine Bilirubin NEGATIVE (Negative); Urine Blood Negative (Negative); Urine Clarity Clear (Clear); Urine Color Yellow (Yellow); Urine Glucose NEGATIVE (Negative); Urine Protein NEGATIVE (Negative); Urine Urobilinogen 1+ (Normal)
[2022-11-21] MEDS ORDERED: MAGNES/ALUMIN/SIMET 30ML UCUP ONE (16:04)
[2022-11-21] MEDS ORDERED: KETOROLAC 30 MG/ML INJ ONE (16:04)
[2022-11-21] MEDS ORDERED: NA CHLORIDE 0.9% 1,000 ML ONE (16:05)
[2022-11-21] MEDS ORDERED: ONDANSETRON 4 MG/2 ML VIAL ONE (16:05)
[2022-11-21] MEDS ORDERED: FAMOTIDINE 20 MG/2 ML VIAL IV ONE (16:05)
[2022-11-21 16:13] LABS: Albumin 3.5 g/dL (3.4-5.0); Bilirubin Total 0.4 mg/dL (0.2-1.0); Potassium 3.2 mEq/L (3.5-5.1); Protein, Total 7.6 g/dL (6.4-8.2)
--- NOTE | 2022-11-21 18:18 | RAD REPORT ---
EXAM DESCRIPTION: CT - Abdomen Pelvis W Contrast - 11/21/2022 4:40 pm CLINICAL HISTORY: ABD PAIN COMPARISON: Abdomen Pelvis W Contrast dated 05/25/2016 TECHNIQUE: Thin cut axial CT imaging of the abdomen and pelvis was performed following intravenous a dministration of 100 mL Isovue 300. Multiplanar reformats were generated and reviewed. All CT scans are performed using dose optimization technique as appropriate and may include automated exposure control or mA/KV adjustment according to patient size. FINDINGS: No suspicious findings in the lung bases. The liver, spleen, and pancreas show no suspicious findings. Gallbladder and biliary tree are also wi thout suspicious finding. Symmetric renal function is seen with no hydronephrosis or suspicious renal mass. Right lower pole an d pelvic 5 millimeter calculi, without evidence of obstruction. Left lower pole 2 millimeter nonobstr ucting calculus. Left superior pole renal cyst, 2.5 centimeter, slightly increased in size since prio r exam, maintaining benign features. No dilated bowel loops or bowel wall thickening. No free air, free fluid or inflammatory stranding. N o suspicious mass or bulky lymphadenopathy. The urinary bladder is without significant finding. Moderate to advanced abdominal aortic atherosclerotic changes. Umbilical and right inguinal fat containing hernia. No suspicious bony findings. IMPRESSION: Nonobstructing bilateral renal calculi not exceeding 5 millimeter. Moderate to advanced atherosclerotic calcific plaque of the mid to distal abdominal aorta. No other acute intra-abdominal process.
--- NOTE | 2022-11-21 18:29 | EDPHYS ---
Physician Documentation [facility] Name: Db Gilman Age: 52 yrs Sex: Female : 1970 Arrival Date: 11/21/2022 Time: 15:09 Bed 16 Private MD: ED Physician Aba Hopkins HPI: 11/21 15:20 This 52 yrs old Female presents to ER via Unassigned with complaints of Abdominal Pain. jr11 15:20 The patient presents with abdominal pain that is diffuse. Onset: The symptoms/episode jr11 began/occurred 2 day(s) ago. Associated signs and symptoms: Pertinent positives: Pertinent negatives: vaginal discharge, vomiting blood. The symptoms are described as achy, constant. Modifying factors: The symptoms are alleviated by nothing, the symptoms are aggravated by nothing. No CP, no fever, no urinary complaints . Historical: - Allergies: 15:20 No Known Allergies; nj1 - PMHx: 15:20 Anxiety; Depression; drug abuse; Paranoia; Hypertensive disorder; nj1 - PSHx: 15:21 Umbilical hernia repair; nj1 15:22 section; nj1 - Immunization history:: Client reports receiving the 2nd dose of the Covid vaccine. - Social history:: Smoking status: Patient reports the use of cigarette tobacco products, smokes one-half pack cigarettes per day. ROS: 15:20 All other systems are negative. jr11 Exam: 15:20 Constitutional: This is a well developed, well nourished patient who is awake, alert, jr11 and in no acute distress. Head/Face: Normocephalic, atraumatic. Eyes: Extra-ocular motions intact. Lids and lashes normal. Conjunctiva and sclera are non-icteric and not injected. Cornea within normal limits. Periorbital areas with no swelling, redness, or edema. ENT: Nares patent. No nasal discharge, no septal abnormalities noted. Oropharynx with no redness, swelling, or masses, exudates, or evidence of obstruction, uvula midline. Mucous membranes moist. Neck: Trachea midline, no thyromegaly or masses palpated, and no cervical lymphadenopathy. Supple, full range of motion without nuchal rigidity, or vertebral point tenderness. No Meningismus. Chest/axilla: Normal chest wall appearance and motion. Nontender with no deformity. No lesions are appreciated. Cardiovascular: Regular rate and rhythm with a normal S1 and S2. No gallops, murmurs, or rubs. Normal PMI, no JVD. No pulse deficits. Abdomen/GI: diffuse abd pain Back: No spinal tenderness. No costovertebral tenderness. Full range of motion. MS/ Extremity: Pulses equal, no cyanosis. Neurovascular intact. Full, normal range of motion. Neuro: Awake and alert, GCS 15, oriented to person, place, time, and situation. No gross motor or sensory deficits. Vital Signs: 15:18 BP 151 / 83; Pulse 83; Resp 18; Temp 98.2; Pulse Ox 100% ; Weight 72.57 kg; Height 4 nj1 ft. 11 in. ; Pain 10/10; 16:15 BP 151 / 65; Pulse 66; Resp 16; Pulse Ox 98% ; bp 17:47 BP 142 / 76; Pulse 68; Resp 16; Pulse Ox 93% ; bp 18:51 BP 128 / 74; Pulse 71; Resp 16; Pulse Ox 97% ; bp 15:18 Body Mass Index 32.31 (72.57 kg, 149.86 cm) nj1 15:18 Pain Scale: Adult nj1 MDM: 15:18 Patient medically screened. jr11 18:27 Differential diagnosis: bowel obstruction, cholecystitis, Cholelithiasis, rn diverticulitis, gastritis, non-specific abd pain, pancreatitis, Pyelonephritis, Ureterolithiasis, urinary tract infection. Differential diagnosis: gastroesophageal reflux disease. Data reviewed: vital signs, nurses notes. Data reviewed: lab test result(s), radiologic studies, CT scan, and as a result, I will discharge patient. Counseling: I had a detailed discussion with the patient and/or guardian regarding: the historical points, exam findings, and any diagnostic results supporting the discharge/admit diagnosis, lab results, radiology results, the need for outpatient follow up, to return to the emergency department if symptoms worsen or persist or if there are any questions or concerns that arise at home. Response to treatment: the patient's symptoms have markedly improved after treatment, and as a result, I will discharge patient. Special discussion: Based on the patient's Hx, exam, and Dx evaluation, there is no indication for emergent surgery or inpatient Tx. It is understood by the patient/guardian that if the Sx's persist or worsen they need to return immediately for re-evaluation. I discussed with the patient/guardian in detail that at this point there is no indication for admission to the hospital. It is understood, however, that if the symptoms persist or worsen the patient needs to return immediately for re-evaluation. ED course: Pt signed out to me by Dr. Hopkins, plan was to dc home if no acute findings on ct, there are no acute findings on CT, will dc home with return precautions. . 11/21 15:18 Order name: CBC with Diff; Complete Time: 16: [facility] 11/21 15:18 Order name: CMP; Complete Time: 16: [facility] 11/21 15:18 Order name: Lipase; Complete Time: 16: [facility] 11/21 15:18 Order name: Urinalysis w/ reflexes; Complete Time: 16: [facility] 11/21 15:18 Order name: CT Abd/Pelvis - IV Contrast Only; Complete Time: 18: [facility] 11/21 15:18 Order name: IV Saline Lock; Complete Time: 15:35 [facility] 11/21 15:18 Order name: Labs collected and sent; Complete Time: 15:36 [facility] Administered Medications: 15:45 Drug: NS 0.9% IV 1000 ml Route: IV; Rate: 1 bolus; Site: left forearm; bp 15:45 Drug: Famotidine IVP 20 mg Route: IVP; Site: left forearm; bp 15:45 Drug: TORadol - Ketorolac IVP 15 mg Route: IVP; Site: left forearm; bp 15:45 Drug: Ondansetron IVP 4 mg Route: IVP; Site: left forearm; bp 15:45 Drug: GI Cocktail without - (Maalox PO Suspension 30 ml, Lidocaine Mucous bp Membrane Liquid 2 % 15 ml) Route: PO; Disposition Summary: 11/21/22 18:28 Discharge Ordered Location: Home rn Problem: new rn Symptoms: have improved rn Condition: Stable rn Diagnosis - Abdominal pain, unspecified rn Followup: rn - With: Private Physician - When: As needed - Reason: Recheck today's complaints, Re-evaluation by your physician Discharge Instructions: - Discharge Summary Sheet 11 - Abdominal Pain, Adult [facility] Forms: - Medication Reconciliation Form rn - Thank You Letter rn - Antibiotic sport internship - Prescription Opioid Use rn - [email or web address] rn Prescriptions: - dicyclomine 20 mg Oral Tablet - take 1 tablet by ORAL route 3 times per day prn leyla sen; 20 tablet; Refills: jr11 0, Product Selection Permitted Signatures: Dispatcher [employer] Lew Solis MD MD rn Alfonso Guillaume RN RN Aba Rowell MD MD jr11 Nikkie Choudhary RN RN nj1
--- NOTE | 2022-11-21 18:29 | ER ---
Nurse's Notes [facility] Name: Db Gilman Age: 52 yrs Sex: Female : 1970 Arrival Date: 11/21/2022 Time: 15:09 Bed 16 Private MD: Diagnosis: Abdominal pain, unspecified Presentation: 11/21 15:18 Chief complaint: Patient states: Abdominal pain for about a year, but got worse the nj1 last 2 days. Nauseous. Coronavirus screen: Vaccine status: Patient reports receiving the 2nd dose of the covid vaccine. Ebola Screen: Patient denies travel to an Ebola-affected area in the 21 days before illness onset. Initial Sepsis Screen: Does the patient meet any 2 criteria? No. Patient's initial sepsis screen is negative. Does the patient have a suspected source of infection? No. Patient's initial sepsis screen is negative. Risk Assessment: Do you want to hurt yourself or someone else? Patient reports no desire to harm self or others. Onset of symptoms was November 19, 2022. 15:18 Method Of Arrival: Ambulatory [facility] 15:18 Acuity: MEHREEN 3 [facility] Triage Assessment: 15:30 General: Appears uncomfortable, Behavior is cooperative, appropriate for age, anxious. bp Pain: Complains of pain in abdomen. EENT: No deficits noted. Neuro: No deficits noted. Cardiovascular: No deficits noted. Respiratory: No deficits noted. GI: Reports lower abdominal pain, upper abdominal pain. : No signs and/or symptoms were reported regarding the genitourinary system. Derm: No deficits noted. Musculoskeletal: No deficits noted. Historical: - Allergies: 15:20 No Known Allergies; nj1 - PMHx: 15:20 Anxiety; Depression; drug abuse; Paranoia; Hypertensive disorder; nj1 - PSHx: 15:21 Umbilical hernia repair; nj1 15:22 section; nj1 - Immunization history:: Client reports receiving the 2nd dose of the Covid vaccine. - Social history:: Smoking status: Patient reports the use of cigarette tobacco products, smokes one-half pack cigarettes per day. Screenin:15 [facility] ED Fall Risk Assessment (Adult) History of falling in the last 3 months, bp including since admission No falls in past 3 months (0 pts). Abuse screen: Denies threats or abuse. Denies injuries from another. Nutritional screening: No deficits noted. Tuberculosis screening: No symptoms or risk factors identified. Assessment: 15:30 General: SEE TRIAGE NOTE. bp 16:15 Reassessment: No changes from previously documented assessment. Patient is alert, bp oriented x 3, equal unlabored respirations, skin warm/dry/pink. 17:47 Reassessment: Patient appears in no apparent distress at this time. Patient is alert, bp oriented x 3, equal unlabored respirations, skin warm/dry/pink. 18:51 Reassessment: DC HOME AMBULATORY. bp Vital Signs: 15:18 BP 151 / 83; Pulse 83; Resp 18; Temp 98.2; Pulse Ox 100% ; Weight 72.57 kg; Height 4 nj1 ft. 11 in. ; Pain 10/10; 16:15 BP 151 / 65; Pulse 66; Resp 16; Pulse Ox 98% ; bp 17:47 BP 142 / 76; Pulse 68; Resp 16; Pulse Ox 93% ; bp 18:51 BP 128 / 74; Pulse 71; Resp 16; Pulse Ox 97% ; bp 15:18 Body Mass Index 32.31 (72.57 kg, 149.86 cm) nj1 15:18 Pain Scale: Adult nj1 ED Course: 15:10 Patient arrived in ED. am2 15:12 Aba Hopkins MD is Attending Physician. jr11 15:20 Triage completed. nj1 15:22 Arm band placed on right wrist. nj1 15:24 Alfonso Guillaume, ARTURO is Primary Nurse. bp 15:35 Inserted saline lock: 20 gauge in left forearm, using aseptic technique. bp 16:15 Patient has correct armband on for positive identification. Bed in low position. Call bp light in reach. Side rails up X2. 16:42 CT Abd/Pelvis - IV Contrast Only In Process Unspecified. EDMS 18:51 No provider procedures requiring assistance completed. IV discontinued, intact, bp bleeding controlled, No redness/swelling at site. Pressure dressing applied. Administered Medications: 15:45 Drug: NS 0.9% IV 1000 ml Route: IV; Rate: 1 bolus; Site: left forearm; bp 15:45 Drug: Famotidine IVP 20 mg Route: IVP; Site: left forearm; bp 15:45 Drug: TORadol - Ketorolac IVP 15 mg Route: IVP; Site: left forearm; bp 15:45 Drug: Ondansetron IVP 4 mg Route: IVP; Site: left forearm; bp 15:45 Drug: GI Cocktail without - (Maalox PO Suspension 30 ml, Lidocaine Mucous bp Membrane Liquid 2 % 15 ml) Route: PO; Medication: 18:51 VIS not applicable for this client. bp Outcome: 18:28 Discharge ordered by . rn 18:51 Discharged to home ambulatory. bp 18:51 Condition: stable 18:51 Discharge instructions given to patient, Instructed on discharge instructions, follow up and referral plans. medication usage, Demonstrated understanding of instructions, follow-up care, medications, Prescriptions given X 1. 18:53 Patient left the ED. bp Signatures: Dispatcher [employer] EDMS Lew Faulkner MD MD rn Moreno, Amanda am2 Alfonso Guillaume RN RN bp Aba Hopkins MD MD [id number] Nikkie Choudhary RN RN nj1 Corrections: (The following items were deleted from the chart) 15:22 15:18 BP 130 / 86; Pulse 83bpm; Resp 18bpm; Pulse Ox 100%; Temp 98.2F; 72.57 kg; Height nj1 4 ft. 11 in.; BMI: 32.3; Pain 10/10, Adult; nj1
[2022-11-21 19:10] VITALS: TEMP 98.2
[2022-11-21 19:13] VITALS: BP 128/74; O2SAT 97
== END 2022-11-21 18:53 | disposition home or self-care (01) ==
LOC: ER 15:09
DX: R10.9 Unspecified abdominal pain (principal); I10 Essential (primary) hypertension; F17.210 Nicotine dependence, cigarettes, uncomplicated
CPT/HCPCS: 85025; 36415; 81003; 83690; 80053; 74177; 96375; 96374; 99284; Q9967; J2405; J7030